=== PATIENT | female | born 1940 | race Asian ===

== ENCOUNTER 2021-09-25 11:51 | Inpatient (IN) | payer MEDICARE ==
[~2021-09-25 11:51] MED LIST: Iopamidol 370 76% 100 ML VIAL ONE
[2021-09-25 13:31] LABS: #Monocytes 0.9 10x3/uL (0.0-1.1); #Neutrophils 15.5 10x3/uL (1.5-8.4); %Basophils 0.1 % (0.0-2.0); %Lymphocytes 2.3 % (18.0-47.0); %Monocytes 5.3 % (0.0-10.0); %Neutrophils 91.6 % (40.0-75.0); Hemoglobin 13.6 g/dL (12.0-15.5); Mean Corpuscular HGB CONC 33.2 g/dL (32.0-36.0); Mean Corpuscular Hemoglobin 31.9 pg (27.0-33.0); Mean Corpuscular Volume 96.2 fl (81.6-98.3); Mean Platelet Volume 10.8 fl (7.4-10.4); Platelet Count 203 10x3/uL (150-450); RBC Distribution Width 14.9 % (11.5-14.5); Red Blood Cell (RBC) Count 4.26 10x6/uL (3.90-5.03)
[2021-09-25 13:47] LABS: ALT (SGPT) 60 U/L (8-55); AST (SGOT) 42 U/L (5-34); Albumin 4.3 g/dL (3.4-4.8); Alkaline Phosphatase 70 U/L (40-110); Anion Gap 20 mmol/L (10-20); BUN (Urea Nitrogen) 36 mg/dL (9.8-20.1); Bilirubin, Total 0.6 mg/dL (0.2-1.2); Calc. Creatinine Clearance 0 mL/min (70-130); Calcium 9.3 mg/dL (7.8-10.44); Carbon Dioxide 18 mmol/L (23-31); Chloride 111 mmol/L (98-107); Globulin 2.7 g/dL (2.4-3.5); Glucose 226 mg/dL (83-110); Potassium 4.6 mmol/L (3.5-5.1); Sodium 144 mmol/L (136-145)
[2021-09-25 13:52] LABS: SARS-CoV-2 NAA Rapid Test Not Detected (NotDetected)
[2021-09-25] MEDS ORDERED: cefTRIAXone\\ROCEPHIN 2 GM VIAL ONE (14:01)
[2021-09-25] MEDS ORDERED: Azithromycin 500 MG VIAL ONE (14:01)
[2021-09-25 14:05] LABS: CKMB 2.7 ng/mL (0-6.6)
[2021-09-25] MEDS ORDERED: Aspirin Chewable 81 MG TAB ONE (14:11)
[2021-09-25] MEDS ORDERED: Furosemide 40 MG/4 ML VIAL ONE (15:06)
[2021-09-25 15:23] LABS: Actual Bicarbonate (HCO3v) 18 mEq/L (22-28); Base Excess -6.2 mEq/L (-2.0 to +3.0); Calcium, Ionized (venous) 1.17 mmol/L (1.16-1.32); Chloride (VBG) 111 mmol/L (98-106); Critical Notified By: CP.PH; Hemoglobin (Hb) 14.2 g/dL (11.7-16.1); Potassium (VBG) 4.31 mmol/L (3.70-5.30); Puncture Site Other Site; Sodium 145.2 mmol/L (133-146); pH (venous) 7.36 (7.32-7.43)
[2021-09-25 15:54] LABS: Troponin I 0.109 ng/mL (< 0.028)
[2021-09-25 16:07] LABS: Lactic Acid 1.9 mmol/L (0.5-2.2)
[2021-09-25] MEDS ORDERED: Enoxaparin Sodium 60 MG/0.6 ML SYRINGE ONE (16:15)
[2021-09-25 16:25] LABS: INR-International Normal Ratio 1.1; PTT 21.1 sec (22.0-33.0); Prothrombin Time 11.6 sec (9.5-12.1)
[2021-09-25 16:33] VITALS: BMI 18.9
[2021-09-25 18:31] LABS: Troponin I 0.099 ng/mL (< 0.028)
[2021-09-26] MEDS: Enoxaparin Sodium 60 MG/0.6 ML SYRINGE SC SCH ×2 (03:16→16:49)
[2021-09-26 03:51] LABS: #Monocytes 0.7 10x3/uL (0.0-1.1); #Neutrophils 11.6 10x3/uL (1.5-8.4); %Basophils 0.1 % (0.0-2.0); %Eosinophils 0.1 % (0.0-6.0); %Neutrophils 88.3 % (40.0-75.0); Anion Gap 18 mmol/L (10-20); BUN (Urea Nitrogen) 28 mg/dL (9.8-20.1); Calc. Creatinine Clearance 43 mL/min (70-130); Calcium 8.4 mg/dL (7.8-10.44); Carbon Dioxide 21 mmol/L (23-31); Chloride 111 mmol/L (98-107); Glucose 162 mg/dL (83-110); Hemoglobin 13.3 g/dL (12.0-15.5); Mean Corpuscular HGB CONC 33.8 g/dL (32.0-36.0); Mean Corpuscular Hemoglobin 31.4 pg (27.0-33.0); Mean Corpuscular Volume 92.9 fl (81.6-98.3); Mean Platelet Volume 11.1 fl (7.4-10.4); Platelet Count 215 10x3/uL (150-450); RBC Distribution Width 15.2 % (11.5-14.5); Red Blood Cell (RBC) Count 4.24 10x6/uL (3.90-5.03); Sodium 146 mmol/L (136-145); White Blood Cell (WBC) Count 13.1 10x3/uL (3.5-10.5)
[2021-09-26] MEDS: Furosemide 40 MG/4 ML VIAL SLOW IVP SCH (07:56)
[2021-09-26] MEDS ORDERED: Famotidine 20 MG TAB PO SCH (09:00)
[2021-09-26] MEDS: cefTRIAXone\\ROCEPHIN 1 GM in Sodium Chloride 0.9% 100 ML IVPB SCH (15:15)
[2021-09-26] MEDS ORDERED: Dextrose 50% Abboject 50 ML SYRINGE SLOW IVP PRN (15:59)
[2021-09-26] MEDS ORDERED: Dextrose 5% in Water 1,000 ML IV PRN (15:59)
[2021-09-26] MEDS: HumaLOG 300 UNITS/3 ML VIAL SC PRN ×2 (16:49→21:18)
[2021-09-26] MEDS: Carvedilol 3.125 MG TAB PO SCH (16:50)
[2021-09-26 20:50] LABS: Anion Gap 18 mmol/L (10-20); BUN (Urea Nitrogen) 31 mg/dL (9.8-20.1); Calc. Creatinine Clearance 36 mL/min (70-130); Carbon Dioxide 23 mmol/L (23-31); Chloride 110 mmol/L (98-107); Glucose 271 mg/dL (83-110); Magnesium 2.6 mg/dL (1.6-2.6); Potassium 4.1 mmol/L (3.5-5.1); Sodium 147 mmol/L (136-145)
[2021-09-27] MEDS: Enoxaparin Sodium 60 MG/0.6 ML SYRINGE SC SCH (03:25)
[2021-09-27 03:48] LABS: #Monocytes 0.9 10x3/uL (0.0-1.1); #Neutrophils 14.3 10x3/uL (1.5-8.4); %Basophils 0.1 % (0.0-2.0); %Eosinophils 0.1 % (0.0-6.0); %Lymphocytes 5.9 % (18.0-47.0); %Monocytes 5.3 % (0.0-10.0); %Neutrophils 88.1 % (40.0-75.0); Hemoglobin 14.1 g/dL (12.0-15.5); Mean Corpuscular HGB CONC 33.3 g/dL (32.0-36.0); Mean Corpuscular Hemoglobin 31.1 pg (27.0-33.0); Mean Corpuscular Volume 93.4 fl (81.6-98.3); Mean Platelet Volume 10.2 fl (7.4-10.4); Platelet Count 197 10x3/uL (150-450); RBC Distribution Width 15.3 % (11.5-14.5); Red Blood Cell (RBC) Count 4.53 10x6/uL (3.90-5.03); White Blood Cell (WBC) Count 16.2 10x3/uL (3.5-10.5)
[2021-09-27 04:01] LABS: Anion Gap 19 mmol/L (10-20); BUN (Urea Nitrogen) 29 mg/dL (9.8-20.1); Calc. Creatinine Clearance 45 mL/min (70-130); Calcium 8.6 mg/dL (7.8-10.44); Carbon Dioxide 24 mmol/L (23-31); Cardiac Risk 4.3 (Less than 4.5); Chloride 111 mmol/L (98-107); Cholesterol 239 mg/dl (< 200 Desired); Glucose 136 mg/dL (83-110); HDL Cholesterol 55 mg/dL (>60 Neg Risk); LDL Cholesterol, Calculated 164 mg/dL; Potassium 3.7 mmol/L (3.5-5.1); Sodium 150 mmol/L (136-145); Triglycerides 100 mg/dL (Less than 150)
[2021-09-27 04:26] LABS: CKMB 1.5 ng/mL (0-6.6)
[2021-09-27] MEDS: Furosemide 40 MG/4 ML VIAL SLOW IVP SCH (09:16)
[2021-09-27] MEDS: Famotidine 20 MG TAB PO SCH (09:16)
[2021-09-27] MEDS: Carvedilol 3.125 MG TAB PO SCH ×2 (09:16→16:49)
[2021-09-27] MEDS: Lisinopril 2.5 MG TAB PO SCH (09:16)
[2021-09-27 09:57] LABS: Bilirubin Neg (Negative); Blood, Urine 150 (Negative); Clarity Clear (Clear); Glucose, Urine (Dipstick) Normal (Negative); Ketone, Urine 15 mg/dL (Negative); Leukocyte Negative (Negative); Nitrite Negative (Negative); Protein, Urine (Dipstick) 30 mg/dl (Neg-Trace); Urobilinogen Normal mg/dL (Less than 2)
[2021-09-27 10:13] LABS: Bacteria/HPF Rare-Few HPF (None Seen); Mucous/LPF 1+ LPF (<2+); RBC/HPF 0-3 HPF (0-3); Squamous Epithelial 0-3 HPF (0-3)
[2021-09-27] MEDS ORDERED: Spironolactone 25 MG TAB PO SCH (11:00)
[2021-09-27] MEDS: HumaLOG 300 UNITS/3 ML VIAL SC PRN ×2 (11:37→16:04)
[2021-09-27 12:06] LABS: Hemoglobin A1c 6.7 % (4.0-6.0)
[2021-09-27] MEDS: cefTRIAXone\\ROCEPHIN 1 GM in Sodium Chloride 0.9% 100 ML IVPB SCH (13:49)
[2021-09-27 18:43] LABS: Thyroid Stimulating Hormone 0.3055 uIU/mL (0.35-4.94)
[2021-09-27] MEDS ORDERED: Estrogens, Conjugated 30 GM TUBE VAG SCH (21:00)
[2021-09-27] MEDS: Apixaban 5 MG TAB PO SCH (21:54)
[2021-09-27] MEDS: Atorvastatin Calcium 10 MG TAB PO SCH (21:55)
[2021-09-28 03:19] LABS: #Eosinphils 0.1 10x3/uL (0.0-0.5); #Monocytes 0.8 10x3/uL (0.0-1.1); %Basophils 0.2 % (0.0-2.0); %Eosinophils 0.8 % (0.0-6.0); %Lymphocytes 8.7 % (18.0-47.0); %Monocytes 6.7 % (0.0-10.0); Hemoglobin 14.1 g/dL (12.0-15.5); Mean Corpuscular HGB CONC 33.2 g/dL (32.0-36.0); Mean Corpuscular Hemoglobin 31.7 pg (27.0-33.0); Mean Corpuscular Volume 95.5 fl (81.6-98.3); Mean Platelet Volume 10.6 fl (7.4-10.4); Platelet Count 199 10x3/uL (150-450); RBC Distribution Width 14.9 % (11.5-14.5); Red Blood Cell (RBC) Count 4.45 10x6/uL (3.90-5.03)
[2021-09-28 03:44] LABS: Anion Gap 17 mmol/L (10-20); BUN (Urea Nitrogen) 33 mg/dL (9.8-20.1); Calc. Creatinine Clearance 48 mL/min (70-130); Calcium 8.6 mg/dL (7.8-10.44); Carbon Dioxide 26 mmol/L (23-31); Chloride 108 mmol/L (98-107); Glucose 179 mg/dL (83-110); Potassium 3.5 mmol/L (3.5-5.1); Sodium 147 mmol/L (136-145)
[2021-09-28] MEDS: Spironolactone 25 MG TAB PO SCH (09:00)
[2021-09-28] MEDS: Famotidine 20 MG TAB PO SCH (09:00)
[2021-09-28] MEDS: Lisinopril 2.5 MG TAB PO SCH (09:00)
[2021-09-28] MEDS: Carvedilol 3.125 MG TAB PO SCH ×2 (09:01→17:44)
[2021-09-28] MEDS: Polyethylene Glycol 3350 17 GM Packet PO SCH (09:01)
[2021-09-28] MEDS: Apixaban 5 MG TAB PO SCH ×2 (09:01→21:36)
[2021-09-28] MEDS: HumaLOG 300 UNITS/3 ML VIAL SC PRN ×2 (09:40→18:05)
[2021-09-28 13:06] LABS: T4 9.8 ug/dL (4.87-11.72)
[2021-09-28] MEDS: cefTRIAXone\\ROCEPHIN 1 GM in Sodium Chloride 0.9% 100 ML IVPB SCH (13:46)
[2021-09-28] MEDS: Atorvastatin Calcium 10 MG TAB PO SCH (21:36)
[2021-09-28] MEDS: Estrogens, Conjugated 30 GM TUBE VAG SCH (21:55)
[2021-09-29 04:00] LABS: #Eosinphils 0.2 10x3/uL (0.0-0.5); #Monocytes 0.7 10x3/uL (0.0-1.1); #Neutrophils 9.1 10x3/uL (1.5-8.4); %Basophils 0.3 % (0.0-2.0); %Eosinophils 2.1 % (0.0-6.0); %Lymphocytes 9.3 % (18.0-47.0); %Monocytes 6.4 % (0.0-10.0); %Neutrophils 81.4 % (40.0-75.0); Hemoglobin 13.8 g/dL (12.0-15.5); Mean Corpuscular HGB CONC 32.6 g/dL (32.0-36.0); Mean Corpuscular Hemoglobin 31.8 pg (27.0-33.0); Mean Corpuscular Volume 97.5 fl (81.6-98.3); Mean Platelet Volume 10.9 fl (7.4-10.4); Platelet Count 205 10x3/uL (150-450); RBC Distribution Width 14.8 % (11.5-14.5); Red Blood Cell (RBC) Count 4.34 10x6/uL (3.90-5.03); White Blood Cell (WBC) Count 11.2 10x3/uL (3.5-10.5)
[2021-09-29 04:25] LABS: Anion Gap 16 mmol/L (10-20); BUN (Urea Nitrogen) 29 mg/dL (9.8-20.1); Calc. Creatinine Clearance 52 mL/min (70-130); Calcium 8.5 mg/dL (7.8-10.44); Carbon Dioxide 25 mmol/L (23-31); Chloride 110 mmol/L (98-107); Glucose 164 mg/dL (83-110); Potassium 3.8 mmol/L (3.5-5.1); Sodium 147 mmol/L (136-145)
[2021-09-29] MEDS ORDERED: Lactated Ringer's 1,000 ML IV SCH (08:45)
[2021-09-29] MEDS: Carvedilol 3.125 MG TAB PO SCH ×2 (09:36→20:13)
[2021-09-29] MEDS: Apixaban 5 MG TAB PO SCH ×2 (09:36→20:14)
[2021-09-29] MEDS: Famotidine 20 MG TAB PO SCH (09:36)
[2021-09-29] MEDS: Lisinopril 2.5 MG TAB PO SCH (09:37)
[2021-09-29] MEDS: Spironolactone 25 MG TAB PO SCH (09:37)
[2021-09-29] MEDS: Polyethylene Glycol 3350 17 GM Packet PO SCH (09:37)
[2021-09-29] MEDS: HumaLOG 300 UNITS/3 ML VIAL SC PRN ×2 (11:54→20:27)
[2021-09-29] MEDS: cefTRIAXone\\ROCEPHIN 1 GM in Sodium Chloride 0.9% 100 ML IVPB SCH (15:03)
[2021-09-29] MEDS: Atorvastatin Calcium 10 MG TAB PO SCH (20:13)
[2021-09-29] MEDS: Estrogens, Conjugated 30 GM TUBE VAG SCH (23:00)
[2021-09-30 04:38] LABS: #Eosinphils 0.4 10x3/uL (0.0-0.5); #Monocytes 0.6 10x3/uL (0.0-1.1); #Neutrophils 7.1 10x3/uL (1.5-8.4); %Basophils 0.3 % (0.0-2.0); %Eosinophils 3.7 % (0.0-6.0); %Lymphocytes 12.9 % (18.0-47.0); %Monocytes 6.5 % (0.0-10.0); %Neutrophils 75.9 % (40.0-75.0); Hemoglobin 13.2 g/dL (12.0-15.5); Mean Corpuscular HGB CONC 32.5 g/dL (32.0-36.0); Mean Corpuscular Hemoglobin 31.5 pg (27.0-33.0); Mean Corpuscular Volume 96.9 fl (81.6-98.3); Mean Platelet Volume 10.9 fl (7.4-10.4); Platelet Count 194 10x3/uL (150-450); RBC Distribution Width 14.6 % (11.5-14.5); Red Blood Cell (RBC) Count 4.19 10x6/uL (3.90-5.03); White Blood Cell (WBC) Count 9.4 10x3/uL (3.5-10.5)
[2021-09-30 04:49] LABS: Anion Gap 15 mmol/L (10-20); BUN (Urea Nitrogen) 25 mg/dL (9.8-20.1); Calc. Creatinine Clearance 54 mL/min (70-130); Calcium 8.3 mg/dL (7.8-10.44); Carbon Dioxide 24 mmol/L (23-31); Chloride 112 mmol/L (98-107); Glucose 131 mg/dL (83-110); Potassium 3.8 mmol/L (3.5-5.1); Sodium 147 mmol/L (136-145)
[2021-09-30] MEDS: Carvedilol 3.125 MG TAB PO SCH ×2 (09:47→17:07)
[2021-09-30] MEDS: Famotidine 20 MG TAB PO SCH (09:47)
[2021-09-30] MEDS: Spironolactone 25 MG TAB PO SCH (09:47)
[2021-09-30] MEDS: Apixaban 5 MG TAB PO SCH ×2 (09:47→20:14)
[2021-09-30] MEDS: Lisinopril 2.5 MG TAB PO SCH (09:48)
[2021-09-30] MEDS: Polyethylene Glycol 3350 17 GM Packet PO SCH (09:48)
[2021-09-30] MEDS: cefTRIAXone\\ROCEPHIN 1 GM in Sodium Chloride 0.9% 100 ML IVPB SCH (17:05)
[2021-09-30] MEDS: Atorvastatin Calcium 10 MG TAB PO SCH (20:14)
[2021-09-30] MEDS: HumaLOG 300 UNITS/3 ML VIAL SC PRN (20:39)
[2021-09-30] MEDS: Estrogens, Conjugated 30 GM TUBE VAG SCH (21:35)
[2021-10-01 08:46] LABS: Anion Gap 15 mmol/L (10-20); BUN (Urea Nitrogen) 19 mg/dL (9.8-20.1); Calc. Creatinine Clearance 56 mL/min (70-130); Calcium 8.2 mg/dL (7.8-10.44); Carbon Dioxide 22 mmol/L (23-31); Chloride 111 mmol/L (98-107); Glucose 134 mg/dL (83-110); Potassium 4.1 mmol/L (3.5-5.1); Sodium 144 mmol/L (136-145)
[2021-10-01] MEDS ORDERED: Carvedilol 3.125 MG TAB ONE (09:01)
[2021-10-01] MEDS: Spironolactone 25 MG TAB PO SCH (09:05)
[2021-10-01] MEDS: Apixaban 5 MG TAB PO SCH (09:05)
[2021-10-01] MEDS: Famotidine 20 MG TAB PO SCH (09:05)
[2021-10-01] MEDS: Carvedilol 3.125 MG TAB PO SCH (09:06)
[2021-10-01] MEDS: Lisinopril 2.5 MG TAB PO SCH (09:06)
[2021-10-01] MEDS: Polyethylene Glycol 3350 17 GM Packet PO SCH (09:07)
[2021-10-01 16:13] VITALS: BP 124/77; TEMP 96.4
[2021-10-02] MEDS ORDERED: Apixaban 5 MG TAB PO SCH (21:00)
== END 2021-10-01 16:30 | disposition home health service (06) | DRG 175 ==
LOC: CSHERS 11:51 → CSHIMCU 16:01 → CSHTELE 09-28 13:00
PROVIDERS: ADMIT Internal Medicine; ATTEND Family Medicine
PROC: 5A0935A Assistance with Respiratory Ventilation, Less than 24 Consecutive Hours, High Flow/Velocity Cannula (ICD-10-PCS; principal; 2021-09-25)
DX: I26.99 Other pulmonary embolism without acute cor pulmonale (principal); J18.9 Pneumonia, unspecified organism; J96.01 Acute respiratory failure with hypoxia; I50.21 Acute systolic (congestive) heart failure; I42.9 Cardiomyopathy, unspecified; M48.54XA Collapsed vertebra, not elsewhere classified, thoracic region, initial encounter for fracture; J98.11 Atelectasis; E87.2 Acidosis; E78.5 Hyperlipidemia, unspecified; R33.9 Retention of urine, unspecified; R73.9 Hyperglycemia, unspecified; I11.0 Hypertensive heart disease with heart failure; I34.0 Nonrheumatic mitral (valve) insufficiency; M81.0 Age-related osteoporosis without current pathological fracture; R13.10 Dysphagia, unspecified; Z20.822 Contact with and (suspected) exposure to COVID-19
CPT/HCPCS: 36415; 36416; 71045; 71275; 74230; 80048; 80053; 80061; 81001; 82553; 82805; 83036; 83605; 83735; 83880; 84300; 84436; 84443; 84484; 85025; 85610; 85730; 87040; 93005; 93010; 93306; 93970; 94640; 94760; 96365; 96372; 96375; J0456; J0696; J1650; J1815; J1940; J3490; J7120; Q9967

== ENCOUNTER 2021-11-06 09:11 | Outpatient (CLI) | payer OTHER | END 2021-11-06 09:12 | disposition home or self-care (01) | LOC: CSHRAD 09:11 | PROVIDERS: ATTEND Surgery | DX: S22.081D Stable burst fracture of T11-T12 vertebra, subsequent encounter for fracture with routine healing (principal) | CPT/HCPCS: 72070 ==

== ENCOUNTER 2021-12-17 14:32 | Outpatient (CLI) | payer OTHER | END 2021-12-17 14:33 | disposition home or self-care (01) | LOC: CSHRAD 14:32 | PROVIDERS: ATTEND Surgery | DX: S22.081D Stable burst fracture of T11-T12 vertebra, subsequent encounter for fracture with routine healing (principal) | CPT/HCPCS: 72070 ==

== ENCOUNTER 2022-09-13 15:55 | Inpatient (IN) | payer MEDICARE, OTHER ==
[~2022-09-13 15:55] MED LIST changes: +Iopamidol 300 61% 100 ML VIAL FS ONE; -Iopamidol 370 76% 100 ML VIAL ONE
[2022-09-13] MEDS ORDERED: cefTRIAXone (ROCEPHIN) 1 GM VIAL ONE (16:50)
[2022-09-13] MEDS ORDERED: Azithromycin 500 MG VIAL ONE (16:50)
[2022-09-13] MEDS ORDERED: Aspirin Chewable 81 MG TAB ONE (16:50)
[2022-09-13] MEDS ORDERED: Furosemide 40 MG/4 ML VIAL ONE ×2 (16:50→23:54)
[2022-09-13 16:56] LABS: #Eosinphils 0.1 10x3/uL (0.0-0.5); #Monocytes 0.9 10x3/uL (0.0-1.1); %Basophils 0.2 % (0.0-2.0); %Eosinophils 0.6 % (0.0-6.0); %Lymphocytes 4.9 % (18.0-47.0); %Monocytes 7.3 % (0.0-10.0); %Neutrophils 86.4 % (40.0-75.0); Hemoglobin 13.5 g/dL (12.0-15.5); Mean Corpuscular HGB CONC 32.5 g/dL (32.0-36.0); Mean Corpuscular Hemoglobin 32.5 pg (27.0-33.0); Mean Corpuscular Volume 100.2 fl (81.6-98.3); Mean Platelet Volume 10.8 fl (7.4-10.4); Platelet Count 188 10x3/uL (150-450); RBC Distribution Width 15.8 % (11.5-14.5); Red Blood Cell (RBC) Count 4.15 10x6/uL (3.90-5.03); White Blood Cell (WBC) Count 11.6 10x3/uL (3.5-10.5)
[2022-09-13 17:12] LABS: ALT (SGPT) 33 U/L (8-55); AST (SGOT) 21 U/L (5-34); Albumin 3.3 g/dL (3.4-4.8); Alkaline Phosphatase 77 U/L (40-110); Anion Gap 12 mmol/L (10-20); BUN (Urea Nitrogen) 33 mg/dL (9.8-20.1); Bilirubin, Total 0.4 mg/dL (0.2-1.2); CK (CPK) 90 U/L (29-168); Calc. Creatinine Clearance 0 mL/min (70-130); Calcium 8.5 mg/dL (7.8-10.44); Carbon Dioxide 22 mmol/L (23-31); Chloride 111 mmol/L (98-107); Estimated GFR 54; Glucose 347 mg/dL (83-110); Lipase 57 U/L (8-78); Potassium 4.3 mmol/L (3.5-5.1); Protein, Total 5.3 g/dL (5.8-8.1); Sodium 141 mmol/L (136-145)
[2022-09-13 17:26] LABS: Bilirubin Neg (Negative); Blood, Urine 25 (Negative); Clarity Clear (Clear); Glucose, Urine (Dipstick) >=1000 mg/dL (Negative); Ketone, Urine Negative (Negative); Leukocyte Negative (Negative); Nitrite Negative (Negative); Protein, Urine (Dipstick) 100 mg/dl (Neg-Trace); Specific Gravity, Urine 1.025 (1.005-1.030); Urobilinogen Normal mg/dL (Less than 2)
[2022-09-13 17:30] LABS: CKMB 1.7 ng/mL (0-6.6)
[2022-09-13 17:36] LABS: CAUTI Indications for Culture Alt mental st,lethar; RBC/HPF 0-3 HPF (0-3); Squamous Epithelial 0-3 HPF (0-3); WBC/HPF 0-3 HPF (0-3)
[2022-09-13 17:37] LABS: Bacteria/HPF Rare-Few HPF (None Seen); Mucous/LPF Rare LPF (<2+); Urine Culture Reflex No No
[2022-09-13] MEDS ORDERED: Dextrose 50% Abboject 50 ML SYRINGE SLOW IVP PRN (20:50)
[2022-09-13] MEDS ORDERED: Glucagon 1 MG/ML KIT IM PRN (20:50)
[2022-09-13] MEDS ORDERED: Dextrose 5% in Water 1,000 ML IV PRN (20:50)
[2022-09-13 21:07] LABS: Lactic Acid 2.2 mmol/L (0.5-2.2)
[2022-09-13 21:11] LABS: Magnesium 2.2 mg/dL (1.6-2.6)
[2022-09-13 21:16] LABS: Troponin I 0.051 ng/mL (< 0.028)
[2022-09-13] MEDS ORDERED: Potassium Chloride 20 MEQ in Premix Bag 1 BAG IVPB SCH (21:30)
[2022-09-13] MEDS ORDERED: Potassium Chloride 20 MEQ/100 ML PREMIX BAG ONE (21:57)
[2022-09-13] MEDS: HumaLOG 300 UNITS/3 ML VIAL SC PRN (22:34)
[2022-09-13 23:49] LABS: Troponin I 0.052 ng/mL (< 0.028)
[2022-09-13] MEDS ORDERED: Furosemide 40 MG/4 ML VIAL SLOW IVP SCH (23:59)
[2022-09-14] MEDS ORDERED: Aspirin Chewable 81 MG TAB ONE (04:00)
[2022-09-14] MEDS ORDERED: Furosemide 40 MG/4 ML VIAL ONE (04:00)
[2022-09-14 05:28] LABS: Anion Gap 16 mmol/L (10-20); BUN (Urea Nitrogen) 26 mg/dL (9.8-20.1); Calc. Creatinine Clearance 57 mL/min (70-130); Calcium 8.7 mg/dL (7.8-10.44); Carbon Dioxide 26 mmol/L (23-31); Chloride 106 mmol/L (98-107); Estimated GFR 71; Glucose 168 mg/dL (83-110); Potassium 3.9 mmol/L (3.5-5.1); Sodium 144 mmol/L (136-145)
[2022-09-14] MEDS: Furosemide 40 MG/4 ML VIAL SLOW IVP SCH ×2 (05:37→15:16)
[2022-09-14 05:38] LABS: #Eosinphils 0.1 10x3/uL (0.0-0.5); #Neutrophils 9.1 10x3/uL (1.5-8.4); %Basophils 0.3 % (0.0-2.0); %Eosinophils 1.1 % (0.0-6.0); %Lymphocytes 9.6 % (18.0-47.0); %Monocytes 8.8 % (0.0-10.0); %Neutrophils 79.8 % (40.0-75.0); Mean Corpuscular HGB CONC 33.1 g/dL (32.0-36.0); Mean Corpuscular Hemoglobin 32.5 pg (27.0-33.0); Mean Corpuscular Volume 98.1 fl (81.6-98.3); Mean Platelet Volume 10.7 fl (7.4-10.4); Platelet Count 201 10x3/uL (150-450); RBC Distribution Width 15.8 % (11.5-14.5); Red Blood Cell (RBC) Count 4.62 10x6/uL (3.90-5.03); White Blood Cell (WBC) Count 11.4 10x3/uL (3.5-10.5)
[2022-09-14] MEDS: HumaLOG 300 UNITS/3 ML VIAL SC PRN ×3 (06:05→17:21)
[2022-09-14] MEDS: Potassium Chloride 10 MEQ in Premix Bag 1 BAG IVPB SCH ×2 (06:05→10:21)
[2022-09-14] MEDS ORDERED: Aspirin 81 mg Enteric Coated Tablet PO SCH (09:00)
[2022-09-14 13:54] LABS: Uric Acid 6.5 mg/dL (2.6-6.0)
[2022-09-14] MEDS: Carbidopa/Levodopa 25-100 mg Tablet PO SCH ×2 (15:50→21:04)
[2022-09-14] MEDS: Carvedilol 3.125 MG TAB PO SCH (17:20)
[2022-09-14] MEDS: Donepezil HCl 5 MG TAB PO SCH (21:04)
[2022-09-15 05:29] LABS: Anion Gap 16 mmol/L (10-20); BUN (Urea Nitrogen) 39 mg/dL (9.8-20.1); Calc. Creatinine Clearance 33 mL/min (70-130); Carbon Dioxide 25 mmol/L (23-31); Chloride 107 mmol/L (98-107); Sodium 144 mmol/L (136-145)
[2022-09-15 05:30] LABS: Calcium 8.8 mg/dL (7.8-10.44); Estimated GFR 56; Glucose 212 mg/dL (83-110)
[2022-09-15 05:38] LABS: #Eosinphils 0.1 10x3/uL (0.0-0.5); #Monocytes 0.9 10x3/uL (0.0-1.1); #Neutrophils 10.9 10x3/uL (1.5-8.4); %Basophils 0.2 % (0.0-2.0); %Eosinophils 0.7 % (0.0-6.0); %Lymphocytes 6.8 % (18.0-47.0); %Monocytes 7.1 % (0.0-10.0); %Neutrophils 84.6 % (40.0-75.0); Hemoglobin 14.8 g/dL (12.0-15.5); Mean Corpuscular HGB CONC 33.5 g/dL (32.0-36.0); Mean Corpuscular Hemoglobin 32.7 pg (27.0-33.0); Mean Corpuscular Volume 97.8 fl (81.6-98.3); Mean Platelet Volume 10.7 fl (7.4-10.4); Platelet Count 210 10x3/uL (150-450); RBC Distribution Width 15.9 % (11.5-14.5); Red Blood Cell (RBC) Count 4.52 10x6/uL (3.90-5.03); White Blood Cell (WBC) Count 12.9 10x3/uL (3.5-10.5)
[2022-09-15] MEDS: Furosemide 40 MG/4 ML VIAL SLOW IVP SCH ×2 (06:29→16:45)
[2022-09-15] MEDS: HumaLOG 300 UNITS/3 ML VIAL SC PRN ×4 (06:30→21:01)
[2022-09-15] MEDS: Carbidopa/Levodopa 25-100 mg Tablet PO SCH ×3 (09:36→20:56)
[2022-09-15] MEDS: Lisinopril 2.5 MG TAB PO SCH (09:36)
[2022-09-15] MEDS: Carvedilol 3.125 MG TAB PO SCH ×2 (09:36→16:45)
[2022-09-15] MEDS: Aspirin Chewable 81 MG TAB PO SCH (09:37)
[2022-09-15] MEDS: Spironolactone 25 MG TAB PO SCH (09:37)
[2022-09-15] MEDS: Donepezil HCl 5 MG TAB PO SCH (20:56)
[2022-09-16 04:12] LABS: Anion Gap 13 mmol/L (10-20); BUN (Urea Nitrogen) 56 mg/dL (9.8-20.1); Calc. Creatinine Clearance 21 mL/min (70-130); Calcium 9.1 mg/dL (7.8-10.44); Carbon Dioxide 29 mmol/L (23-31); Chloride 108 mmol/L (98-107); Estimated GFR 32; Glucose 129 mg/dL (83-110); Sodium 146 mmol/L (136-145)
[2022-09-16 04:22] LABS: #Eosinphils 0.3 10x3/uL (0.0-0.5); #Monocytes 1.1 10x3/uL (0.0-1.1); #Neutrophils 10.8 10x3/uL (1.5-8.4); %Basophils 0.2 % (0.0-2.0); %Eosinophils 2.3 % (0.0-6.0); %Lymphocytes 5.9 % (18.0-47.0); %Monocytes 8.5 % (0.0-10.0); %Neutrophils 82.6 % (40.0-75.0); Hemoglobin 13.5 g/dL (12.0-15.5); Mean Corpuscular HGB CONC 32.8 g/dL (32.0-36.0); Mean Corpuscular Hemoglobin 32.4 pg (27.0-33.0); Mean Corpuscular Volume 98.6 fl (81.6-98.3); Platelet Count 206 10x3/uL (150-450); Red Blood Cell (RBC) Count 4.17 10x6/uL (3.90-5.03); White Blood Cell (WBC) Count 13.1 10x3/uL (3.5-10.5)
[2022-09-16] MEDS: Furosemide 40 MG/4 ML VIAL SLOW IVP SCH ×2 (05:49→13:55)
[2022-09-16] MEDS ORDERED: Sodium Chloride 0.9% 500 ML IV SCH (06:30)
[2022-09-16] MEDS ORDERED: Adenosine 6 MG/2 ML VIAL ONE (06:35)
[2022-09-16 07:16] LABS: #Eosinphils 0.3 10x3/uL (0.0-0.5); #Monocytes 0.9 10x3/uL (0.0-1.1); #Neutrophils 10.8 10x3/uL (1.5-8.4); %Basophils 0.2 % (0.0-2.0); %Eosinophils 2.3 % (0.0-6.0); %Lymphocytes 6.4 % (18.0-47.0); %Neutrophils 83.6 % (40.0-75.0); Hemoglobin 14.1 g/dL (12.0-15.5); Mean Corpuscular HGB CONC 33.2 g/dL (32.0-36.0); Mean Corpuscular Hemoglobin 32.9 pg (27.0-33.0); Mean Corpuscular Volume 99.1 fl (81.6-98.3); Mean Platelet Volume 10.6 fl (7.4-10.4); Platelet Count 198 10x3/uL (150-450); RBC Distribution Width 15.9 % (11.5-14.5); Red Blood Cell (RBC) Count 4.29 10x6/uL (3.90-5.03); White Blood Cell (WBC) Count 12.9 10x3/uL (3.5-10.5)
[2022-09-16 07:20] LABS: Anion Gap 17 mmol/L (10-20); BUN (Urea Nitrogen) 53 mg/dL (9.8-20.1); Calc. Creatinine Clearance 23 mL/min (70-130); Calcium 8.8 mg/dL (7.8-10.44); Carbon Dioxide 26 mmol/L (23-31); Chloride 108 mmol/L (98-107); Estimated GFR 37; Glucose 162 mg/dL (83-110); Magnesium 2.4 mg/dL (1.6-2.6); Potassium 3.7 mmol/L (3.5-5.1); Sodium 147 mmol/L (136-145)
[2022-09-16 07:29] LABS: Troponin I 0.042 ng/mL (< 0.028)
[2022-09-16 07:33] LABS: Actual Bicarbonate (HCO3v) 28.2 mEq/L (22-28); Base Excess 4.5 mEq/L (-2 - +2); Calcium, Ionized (venous) 1.08 mmol/L (1.16-1.32); Chloride (VBG) 117 mmol/L (98-106); Hematocrit-VBG 43 % (36.0-47.0); Hemoglobin (Hb) 14.5 g/dL (11.7-16.1); Potassium (VBG) 3.88 mmol/L (3.70-5.30); Puncture Site Other Site; RapidComm Collect By LAB; Sodium 163.8 mmol/L (133-146); pH (venous) 7.477 (7.32-7.43)
[2022-09-16] MEDS ORDERED: Digoxin 0.5 MG/2 ML AMP ONE (07:40)
[2022-09-16] MEDS ORDERED: Digoxin 0.5 MG/2 ML AMP SLOW IVP SCH (07:45)
[2022-09-16] MEDS ORDERED: Dextrose 5% in Water 1,000 ML IV SCH (08:00)
[2022-09-16] MEDS ORDERED: Diltiazem 125 MG in Sodium Chloride 0.9% 100 ML IVPB SCH (08:00)
[2022-09-16 08:44] LABS: ALT (SGPT) 10 U/L (8-55); AST (SGOT) 21 U/L (5-34); Albumin 3.1 g/dL (3.4-4.8); Alkaline Phosphatase 77 U/L (40-110); Anion Gap 18 mmol/L (10-20); BUN (Urea Nitrogen) 52 mg/dL (9.8-20.1); Bilirubin, Total 0.7 mg/dL (0.2-1.2); Calc. Creatinine Clearance 23 mL/min (70-130); Calcium 9.1 mg/dL (7.8-10.44); Carbon Dioxide 26 mmol/L (23-31); Chloride 107 mmol/L (98-107); Estimated GFR 36; Globulin 2.7 g/dL (2.4-3.5); Glucose 180 mg/dL (83-110); Protein, Total 5.8 g/dL (5.8-8.1); Sodium 147 mmol/L (136-145)
[2022-09-16] MEDS: Carbidopa/Levodopa 25-100 mg Tablet PO SCH ×3 (09:30→22:06)
[2022-09-16] MEDS: Carvedilol 3.125 MG TAB PO SCH ×2 (09:34→16:38)
[2022-09-16] MEDS: Aspirin Chewable 81 MG TAB PO SCH (09:34)
[2022-09-16] MEDS: Lisinopril 2.5 MG TAB PO SCH (09:35)
[2022-09-16] MEDS: Spironolactone 25 MG TAB PO SCH (09:36)
[2022-09-16 11:40] LABS: Troponin I 0.076 ng/mL (< 0.028)
[2022-09-16] MEDS: HumaLOG 300 UNITS/3 ML VIAL SC PRN ×2 (11:58→15:53)
[2022-09-16] MEDS: Donepezil HCl 5 MG TAB PO SCH (22:06)
[2022-09-17 03:10] LABS: #Eosinphils 0.2 10x3/uL (0.0-0.5); #Monocytes 1.2 10x3/uL (0.0-1.1); %Basophils 0.2 % (0.0-2.0); %Eosinophils 1.1 % (0.0-6.0); %Lymphocytes 4.1 % (18.0-47.0); %Monocytes 7.8 % (0.0-10.0); %Neutrophils 86.3 % (40.0-75.0); Hemoglobin 14.2 g/dL (12.0-15.5); Mean Corpuscular HGB CONC 32.9 g/dL (32.0-36.0); Mean Corpuscular Hemoglobin 32.9 pg (27.0-33.0); Mean Corpuscular Volume 99.8 fl (81.6-98.3); Mean Platelet Volume 10.7 fl (7.4-10.4); Platelet Count 215 10x3/uL (150-450); RBC Distribution Width 15.6 % (11.5-14.5); Red Blood Cell (RBC) Count 4.32 10x6/uL (3.90-5.03)
[2022-09-17 03:17] LABS: Anion Gap 14 mmol/L (10-20); BUN (Urea Nitrogen) 59 mg/dL (9.8-20.1); Calc. Creatinine Clearance 24 mL/min (70-130); Calcium 9.4 mg/dL (7.8-10.44); Carbon Dioxide 29 mmol/L (23-31); Chloride 107 mmol/L (98-107); Estimated GFR 38; Glucose 223 mg/dL (83-110); Potassium 4.3 mmol/L (3.5-5.1); Sodium 146 mmol/L (136-145)
[2022-09-17] MEDS: HumaLOG 300 UNITS/3 ML VIAL SC PRN ×3 (06:09→22:32)
[2022-09-17] MEDS: Furosemide 40 MG/4 ML VIAL SLOW IVP SCH ×2 (06:11→08:46)
[2022-09-17 06:23] VITALS: BMI 20.2
[2022-09-17] MEDS ORDERED: Polyethylene Glycol 3350 17 GM Packet PO PRN (07:48)
[2022-09-17] MEDS: Digoxin 0.125 MG TAB PO SCH (08:45)
[2022-09-17] MEDS: Spironolactone 25 MG TAB PO SCH (08:45)
[2022-09-17] MEDS: Aspirin Chewable 81 MG TAB PO SCH (08:46)
[2022-09-17] MEDS: Carvedilol 3.125 MG TAB PO SCH (08:46)
[2022-09-17] MEDS: Lisinopril 2.5 MG TAB PO SCH (08:46)
[2022-09-17] MEDS: Ampicillin/Sulbactam 3 GM in Sodium Chloride 0.9% 100 ML IVPB SCH ×2 (08:46→22:32)
[2022-09-17] MEDS: Carbidopa/Levodopa 25-100 mg Tablet PO SCH ×3 (08:49→23:01)
[2022-09-17] MEDS: Carvedilol 6.25 MG TAB PO SCH (16:42)
[2022-09-17] MEDS ORDERED: Sodium Chloride 0.9% 100 ML ONE (22:01)
[2022-09-17] MEDS: Donepezil HCl 5 MG TAB PO SCH (22:32)
[2022-09-18 04:12] LABS: #Eosinphils 0.2 10x3/uL (0.0-0.5); #Monocytes 1.4 10x3/uL (0.0-1.1); #Neutrophils 15.2 10x3/uL (1.5-8.4); %Basophils 0.2 % (0.0-2.0); %Eosinophils 0.9 % (0.0-6.0); %Lymphocytes 4.3 % (18.0-47.0); %Neutrophils 85.8 % (40.0-75.0); Hemoglobin 14.5 g/dL (12.0-15.5); Mean Corpuscular HGB CONC 32.6 g/dL (32.0-36.0); Mean Corpuscular Hemoglobin 32.3 pg (27.0-33.0); Mean Corpuscular Volume 99.1 fl (81.6-98.3); Mean Platelet Volume 11.1 fl (7.4-10.4); Platelet Count 259 10x3/uL (150-450); RBC Distribution Width 15.5 % (11.5-14.5); Red Blood Cell (RBC) Count 4.49 10x6/uL (3.90-5.03); White Blood Cell (WBC) Count 17.7 10x3/uL (3.5-10.5)
[2022-09-18 04:23] LABS: Anion Gap 17 mmol/L (10-20); BUN (Urea Nitrogen) 76 mg/dL (9.8-20.1); Calc. Creatinine Clearance 20 mL/min (70-130); Calcium 10.2 mg/dL (7.8-10.44); Carbon Dioxide 28 mmol/L (23-31); Chloride 108 mmol/L (98-107); Estimated GFR 29; Glucose 145 mg/dL (83-110); Potassium 4.1 mmol/L (3.5-5.1); Sodium 149 mmol/L (136-145)
[2022-09-18 08:59] LABS: Bilirubin Neg (Negative); Blood, Urine 250 (Negative); Clarity Cloudy (Clear); Glucose, Urine (Dipstick) 50 mg/dL (Negative); Ketone, Urine Negative (Negative); Leukocyte 100 (Negative); Nitrite Negative (Negative); Protein, Urine (Dipstick) 30 mg/dl (Neg-Trace); Urobilinogen Normal mg/dL (Less than 2)
[2022-09-18 09:24] LABS: Bacteria/HPF 2+ HPF (None Seen); RBC/HPF Greater than 50 HPF (0-3); Squamous Epithelial 0-3 HPF (0-3)
[2022-09-18] MEDS: Ampicillin/Sulbactam 3 GM in Sodium Chloride 0.9% 100 ML IVPB SCH ×2 (10:14→21:00)
[2022-09-18] MEDS: Carbidopa/Levodopa 25-100 mg Tablet PO SCH ×3 (11:10→21:33)
[2022-09-18] MEDS: Carvedilol 6.25 MG TAB PO SCH ×2 (11:10→16:42)
[2022-09-18] MEDS: Aspirin Chewable 81 MG TAB PO SCH (11:11)
[2022-09-18] MEDS: Digoxin 0.125 MG TAB PO SCH (11:11)
[2022-09-18] MEDS: HumaLOG 300 UNITS/3 ML VIAL SC PRN ×2 (11:21→16:50)
[2022-09-18] MEDS: Lisinopril 2.5 MG TAB PO SCH (11:35)
[2022-09-18] MEDS: Spironolactone 25 MG TAB PO SCH (11:35)
[2022-09-18] MEDS: Furosemide 40 MG/4 ML VIAL SLOW IVP SCH (11:35)
[2022-09-18] MEDS: Donepezil HCl 5 MG TAB PO SCH (21:33)
[2022-09-19 03:32] LABS: #Eosinphils 0.2 10x3/uL (0.0-0.5); #Monocytes 0.7 10x3/uL (0.0-1.1); #Neutrophils 9.2 10x3/uL (1.5-8.4); %Basophils 0.2 % (0.0-2.0); %Eosinophils 1.5 % (0.0-6.0); %Lymphocytes 7.8 % (18.0-47.0); %Monocytes 6.3 % (0.0-10.0); %Neutrophils 83.3 % (40.0-75.0); Hemoglobin 12.4 g/dL (12.0-15.5); Mean Corpuscular HGB CONC 31.6 g/dL (32.0-36.0); Mean Corpuscular Volume 101.6 fl (81.6-98.3); Mean Platelet Volume 11.2 fl (7.4-10.4); Platelet Count 239 10x3/uL (150-450); RBC Distribution Width 15.8 % (11.5-14.5); Red Blood Cell (RBC) Count 3.87 10x6/uL (3.90-5.03)
[2022-09-19 03:47] LABS: Anion Gap 13 mmol/L (10-20); BUN (Urea Nitrogen) 62 mg/dL (9.8-20.1); Calc. Creatinine Clearance 24 mL/min (70-130); Calcium 9.5 mg/dL (7.8-10.44); Carbon Dioxide 31 mmol/L (23-31); Chloride 116 mmol/L (98-107); Estimated GFR 48; Glucose 218 mg/dL (83-110); Potassium 3.7 mmol/L (3.5-5.1)
[2022-09-19 03:51] LABS: Sodium 156 mmol/L (136-145)
[2022-09-19] MEDS ORDERED: Dextrose 5% in Water 1,000 ML IV SCH (04:30)
[2022-09-19] MEDS: HumaLOG 300 UNITS/3 ML VIAL SC PRN ×4 (06:19→21:43)
[2022-09-19] MEDS: Carvedilol 6.25 MG TAB PO SCH ×2 (08:51→16:57)
[2022-09-19] MEDS: Aspirin Chewable 81 MG TAB PO SCH (08:51)
[2022-09-19] MEDS: Carbidopa/Levodopa 25-100 mg Tablet PO SCH ×3 (08:51→21:44)
[2022-09-19] MEDS: Digoxin 0.125 MG TAB PO SCH (08:51)
[2022-09-19] MEDS: Ampicillin/Sulbactam 3 GM in Sodium Chloride 0.9% 100 ML IVPB SCH ×2 (08:51→21:39)
[2022-09-19] MEDS: Dextrose 5% in Water 1,000 ML IV SCH (09:55)
[2022-09-19] MEDS: Donepezil HCl 5 MG TAB PO SCH (21:44)
[2022-09-20 04:12] LABS: #Eosinphils 0.4 10x3/uL (0.0-0.5); #Monocytes 0.5 10x3/uL (0.0-1.1); #Neutrophils 6.5 10x3/uL (1.5-8.4); %Basophils 0.4 % (0.0-2.0); %Eosinophils 4.3 % (0.0-6.0); %Lymphocytes 11.8 % (18.0-47.0); %Monocytes 6.3 % (0.0-10.0); %Neutrophils 76.5 % (40.0-75.0); Hemoglobin 12.3 g/dL (12.0-15.5); Mean Corpuscular HGB CONC 31.1 g/dL (32.0-36.0); Mean Corpuscular Hemoglobin 32.2 pg (27.0-33.0); Mean Corpuscular Volume 103.4 fl (81.6-98.3); Mean Platelet Volume 10.8 fl (7.4-10.4); Platelet Count 242 10x3/uL (150-450); RBC Distribution Width 15.4 % (11.5-14.5); Red Blood Cell (RBC) Count 3.82 10x6/uL (3.90-5.03); White Blood Cell (WBC) Count 8.5 10x3/uL (3.5-10.5)
[2022-09-20 04:24] LABS: Anion Gap 12 mmol/L (10-20); BUN (Urea Nitrogen) 40 mg/dL (9.8-20.1); Calc. Creatinine Clearance 33 mL/min (70-130); Calcium 8.9 mg/dL (7.8-10.44); Carbon Dioxide 29 mmol/L (23-31); Chloride 118 mmol/L (98-107); Estimated GFR 67; Glucose 204 mg/dL (83-110); Magnesium 2.4 mg/dL (1.6-2.6); Potassium 3.8 mmol/L (3.5-5.1)
[2022-09-20 04:33] LABS: Sodium 155 mmol/L (136-145)
[2022-09-20] MEDS: Dextrose 5% in Water 1,000 ML IV SCH ×2 (08:29→14:35)
[2022-09-20] MEDS: Aspirin Chewable 81 MG TAB PO SCH (08:34)
[2022-09-20] MEDS: Ampicillin/Sulbactam 3 GM in Sodium Chloride 0.9% 100 ML IVPB SCH ×3 (08:34→22:08)
[2022-09-20] MEDS: Carvedilol 6.25 MG TAB PO SCH ×2 (08:34→13:48)
[2022-09-20] MEDS: Digoxin 0.125 MG TAB PO SCH (08:34)
[2022-09-20] MEDS: Carbidopa/Levodopa 25-100 mg Tablet PO SCH ×3 (08:44→22:09)
[2022-09-20] MEDS ORDERED: Dextrose 5% in Water 1,000 ML IV SCH (10:00)
[2022-09-20] MEDS: HumaLOG 300 UNITS/3 ML VIAL SC PRN ×3 (12:38→22:08)
[2022-09-20 17:11] LABS: Anion Gap 14 mmol/L (10-20); BUN (Urea Nitrogen) 33 mg/dL (9.8-20.1); Calc. Creatinine Clearance 35 mL/min (70-130); Calcium 8.6 mg/dL (7.8-10.44); Carbon Dioxide 23 mmol/L (23-31); Chloride 117 mmol/L (98-107); Estimated GFR 70; Glucose 232 mg/dL (83-110); Sodium 149 mmol/L (136-145)
[2022-09-20 17:13] LABS: Potassium 4.5 mmol/L (3.5-5.1)
[2022-09-20] MEDS: Donepezil HCl 5 MG TAB PO SCH (22:09)
[2022-09-20] MEDS: Lantus 1000 UNITS/10 ML VIAL SC SCH (22:10)
[2022-09-21] MEDS: Ampicillin/Sulbactam 3 GM in Sodium Chloride 0.9% 100 ML IVPB SCH ×4 (03:33→22:48)
[2022-09-21 03:37] LABS: Anion Gap 10 mmol/L (10-20); BUN (Urea Nitrogen) 29 mg/dL (9.8-20.1); Calc. Creatinine Clearance 37 mL/min (70-130); Calcium 8.7 mg/dL (7.8-10.44); Carbon Dioxide 27 mmol/L (23-31); Chloride 115 mmol/L (98-107); Estimated GFR 76; Glucose 132 mg/dL (83-110); Magnesium 2.3 mg/dL (1.6-2.6); Potassium 3.9 mmol/L (3.5-5.1); Sodium 148 mmol/L (136-145)
[2022-09-21] MEDS: Carvedilol 6.25 MG TAB PO SCH ×2 (08:25→13:40)
[2022-09-21] MEDS: Aspirin Chewable 81 MG TAB PO SCH (08:25)
[2022-09-21] MEDS: Digoxin 0.125 MG TAB PO SCH (08:25)
[2022-09-21] MEDS: Dextrose 5% in Water 1,000 ML IV SCH (08:26)
[2022-09-21] MEDS: Carbidopa/Levodopa 25-100 mg Tablet PO SCH ×3 (08:26→22:49)
[2022-09-21] MEDS: HumaLOG 300 UNITS/3 ML VIAL SC PRN ×2 (17:52→22:51)
[2022-09-21] MEDS: Donepezil HCl 5 MG TAB PO SCH (22:49)
[2022-09-21] MEDS: Lantus 1000 UNITS/10 ML VIAL SC SCH (22:51)
[2022-09-22] MEDS: Ampicillin/Sulbactam 3 GM in Sodium Chloride 0.9% 100 ML IVPB SCH ×4 (04:05→21:37)
[2022-09-22] MEDS: Dextrose 5% in Water 1,000 ML IV SCH (06:06)
[2022-09-22 08:54] LABS: Anion Gap 13 mmol/L (10-20); BUN (Urea Nitrogen) 22 mg/dL (9.8-20.1); Calc. Creatinine Clearance 43 mL/min (70-130); Calcium 8.4 mg/dL (7.8-10.44); Carbon Dioxide 23 mmol/L (23-31); Chloride 113 mmol/L (98-107); Estimated GFR 87; Glucose 130 mg/dL (83-110); Sodium 145 mmol/L (136-145)
[2022-09-22] MEDS: Aspirin Chewable 81 MG TAB PO SCH (10:34)
[2022-09-22] MEDS: Carbidopa/Levodopa 25-100 mg Tablet PO SCH ×3 (10:34→21:39)
[2022-09-22] MEDS: Carvedilol 6.25 MG TAB PO SCH ×2 (10:34→17:31)
[2022-09-22] MEDS: Digoxin 0.125 MG TAB PO SCH (10:35)
[2022-09-22] MEDS: HumaLOG 300 UNITS/3 ML VIAL SC PRN ×2 (13:30→21:43)
[2022-09-22] MEDS ORDERED: Ampicillin/Sulbactam 3 GM VIAL ONE (21:34)
[2022-09-22] MEDS: Donepezil HCl 5 MG TAB PO SCH (21:39)
[2022-09-22] MEDS: Lantus 1000 UNITS/10 ML VIAL SC SCH (21:42)
[2022-09-23] MEDS: Ampicillin/Sulbactam 3 GM in Sodium Chloride 0.9% 100 ML IVPB SCH ×3 (04:57→16:05)
[2022-09-23 05:01] LABS: Anion Gap 8 mmol/L (10-20); BUN (Urea Nitrogen) 21 mg/dL (9.8-20.1); Calc. Creatinine Clearance 43 mL/min (70-130); Calcium 8.4 mg/dL (7.8-10.44); Carbon Dioxide 26 mmol/L (23-31); Chloride 114 mmol/L (98-107); Estimated GFR 87; Glucose 96 mg/dL (83-110); Magnesium 2.2 mg/dL (1.6-2.6); Potassium 3.9 mmol/L (3.5-5.1); Sodium 144 mmol/L (136-145)
[2022-09-23] MEDS: Carbidopa/Levodopa 25-100 mg Tablet PO SCH ×2 (08:46→16:06)
[2022-09-23] MEDS: Digoxin 0.125 MG TAB PO SCH (08:46)
[2022-09-23] MEDS: Aspirin Chewable 81 MG TAB PO SCH (08:46)
[2022-09-23] MEDS: Carvedilol 6.25 MG TAB PO SCH (08:46)
[2022-09-23 16:49] VITALS: BP 134/72; TEMP 98.9
[2022-09-23 20:22] LABS: Hemoglobin A1c 7.7 % (4.0-6.0)
== END 2022-09-23 20:05 | disposition home or self-care (01) | DRG 175 ==
LOC: CSHERS 15:55 → CSHERHOLD 21:17 → CSHTELE 09-14 07:05 → CSHIMCU 09-16 08:01 → CSHTELE 09-17 15:05
PROVIDERS: ADMIT Family Medicine; ATTEND Internal Medicine
PROC: 5A0935A Assistance with Respiratory Ventilation, Less than 24 Consecutive Hours, High Flow/Velocity Cannula (ICD-10-PCS; 2022-09-13)
PROC: 4A043R1 Measurement of Venous Saturation, Peripheral, Percutaneous Approach (ICD-10-PCS; principal; 2022-09-16)
DX: I26.99 Other pulmonary embolism without acute cor pulmonale (principal); E43 Unspecified severe protein-calorie malnutrition; I50.23 Acute on chronic systolic (congestive) heart failure; J96.01 Acute respiratory failure with hypoxia; J69.0 Pneumonitis due to inhalation of food and vomit; I42.8 Other cardiomyopathies; N17.9 Acute kidney failure, unspecified; E87.1 Hypo-osmolality and hyponatremia; I13.0 Hypertensive heart and chronic kidney disease with heart failure and stage 1 through stage 4 chronic kidney disease, or unspecified chronic kidney disease; Z68.1 Body mass index [BMI] 19.9 or less, adult; I47.1 Supraventricular tachycardia; E87.0 Hyperosmolality and hypernatremia; N39.0 Urinary tract infection, site not specified; G20 Parkinson's disease; Z51.5 Encounter for palliative care; I44.7 Left bundle-branch block, unspecified; G93.89 Other specified disorders of brain; G30.9 Alzheimer's disease, unspecified; E78.5 Hyperlipidemia, unspecified; I34.0 Nonrheumatic mitral (valve) insufficiency; I48.91 Unspecified atrial fibrillation; I27.20 Pulmonary hypertension, unspecified; E86.0 Dehydration; R33.9 Retention of urine, unspecified; F02.C0 Dementia in other diseases classified elsewhere, severe, without behavioral disturbance, psychotic disturbance, mood disturbance, and anxiety; R13.10 Dysphagia, unspecified; N18.9 Chronic kidney disease, unspecified; E11.22 Type 2 diabetes mellitus with diabetic chronic kidney disease; E11.65 Type 2 diabetes mellitus with hyperglycemia; Z79.52 Long term (current) use of systemic steroids; Z79.891 Long term (current) use of opiate analgesic; Z79.82 Long term (current) use of aspirin; Z79.2 Long term (current) use of antibiotics; Z98.890 Other specified postprocedural states; Z87.81 Personal history of (healed) traumatic fracture; Z86.711 Personal history of pulmonary embolism
CPT/HCPCS: 36415; 36416; 51701; 70450; 71045; 71275; 72125; 80048; 80053; 81001; 82550; 82553; 82805; 83036; 83605; 83690; 83735; 83880; 84145; 84443; 84484; 84550; 85025; 87040; 87086; 93005; 93010; 93306; 94760; 94762; 96365; 96366; 96367; 96372; 96375; J0153; J0295; J0456; J0696; J1160; J1650; J1815; J1940; J3480; J3490; J7030; J7070; Q9967

== ENCOUNTER 2022-11-15 13:15 | Emergency (ER) | payer MEDICARE ==
[2022-11-15 14:54] LABS: #Eosinphils 0.1 10x3/uL (0.0-0.5); #Monocytes 0.8 10x3/uL (0.0-1.1); #Neutrophils 9.1 10x3/uL (1.5-8.4); %Basophils 0.4 % (0.0-2.0); %Eosinophils 1.1 % (0.0-6.0); %Lymphocytes 10.2 % (18.0-47.0); %Monocytes 7.4 % (0.0-10.0); %Neutrophils 80.3 % (40.0-75.0); Hematocrit 33.8 % (34.9-44.5); Hemoglobin 11.2 g/dL (12.0-15.5); Mean Corpuscular HGB CONC 33.1 g/dL (32.0-36.0); Mean Corpuscular Hemoglobin 31.4 pg (27.0-33.0); Mean Corpuscular Volume 94.7 fl (81.6-98.3); Mean Platelet Volume 9.6 fl (7.4-10.4); Platelet Count 321 10x3/uL (150-450); RBC Distribution Width 13.6 % (11.5-14.5); Red Blood Cell (RBC) Count 3.57 10x6/uL (3.90-5.03); White Blood Cell (WBC) Count 11.3 10x3/uL (3.5-10.5)
[2022-11-15 15:08] LABS: INR-International Normal Ratio 1.1; PTT 22.8 sec (22.0-33.0); Prothrombin Time 11.3 sec (9.5-12.1)
[2022-11-15 15:11] LABS: ALT (SGPT) Less than 7 U/L (8-55); AST (SGOT) 12 U/L (5-34); Albumin 2.9 g/dL (3.4-4.8); Alkaline Phosphatase 60 U/L (40-110); Anion Gap 14 mmol/L (10-20); BUN (Urea Nitrogen) 16 mg/dL (9.8-20.1); Bilirubin, Total 0.3 mg/dL (0.2-1.2); Calc. Creatinine Clearance 0 mL/min (70-130); Calcium 8.2 mg/dL (7.8-10.44); Carbon Dioxide 21 mmol/L (23-31); Chloride 108 mmol/L (98-107); Estimated GFR 87; Globulin 2.2 g/dL (2.4-3.5); Glucose 173 mg/dL (83-110); Potassium 4.2 mmol/L (3.5-5.1); Protein, Total 5.1 g/dL (5.8-8.1); Sodium 139 mmol/L (136-145)
== END 2022-11-15 18:10 | disposition home or self-care (01) ==
LOC: CSHERS 13:15
DX: L89.90 Pressure ulcer of unspecified site, unspecified stage (principal); Z79.899 Other long term (current) drug therapy
CPT/HCPCS: 36415; 71045; 72170; 80053; 84443; 84484; 85025; 85610; 85652; 85730; 93005

== ENCOUNTER 2022-11-26 09:51 | Outpatient (CLI) | payer MEDICARE | END 2022-11-26 09:52 | disposition home or self-care (01) | LOC: CSHWCC 09:51 | PROVIDERS: ATTEND Nurse Practitioner Family | DX: L89.153 Pressure ulcer of sacral region, stage 3 (principal); L89.220 Pressure ulcer of left hip, unstageable; L89.210 Pressure ulcer of right hip, unstageable | CPT/HCPCS: 11042; 97139; G0463; 99203 ==

== ENCOUNTER 2022-12-14 15:24 | Outpatient (CLI) | payer MEDICARE | END 2022-12-14 15:25 | disposition home or self-care (01) | LOC: CSHWCC 15:24 | PROVIDERS: ATTEND Nurse Practitioner Family | DX: L89.220 Pressure ulcer of left hip, unstageable (principal); L89.210 Pressure ulcer of right hip, unstageable; L89.153 Pressure ulcer of sacral region, stage 3 | CPT/HCPCS: 11042 ==

== ENCOUNTER 2023-01-26 13:07 | Outpatient (CLI) | payer MEDICARE | END 2023-01-26 13:08 | disposition home or self-care (01) | LOC: CSHWCC 13:07 | PROVIDERS: ATTEND Preventive Medicine Undersea and Hyperbaric Medicine | DX: L89.220 Pressure ulcer of left hip, unstageable (principal); L89.210 Pressure ulcer of right hip, unstageable | CPT/HCPCS: 11043 ==

== ENCOUNTER 2023-02-16 08:31 | Outpatient (CLI) | payer MEDICARE | END 2023-02-16 08:32 | disposition home or self-care (01) | LOC: CSHWCC 08:31 | PROVIDERS: ATTEND Physician Assistant | DX: L89.220 Pressure ulcer of left hip, unstageable (principal); L89.210 Pressure ulcer of right hip, unstageable | CPT/HCPCS: 36416; 97597 ==

== ENCOUNTER 2023-02-28 15:51 | Emergency (ER) | payer MEDICARE ==
[2023-02-28 16:53] LABS: #Eosinphils 0.1 10x3/uL (0.0-0.5); #Monocytes 0.6 10x3/uL (0.0-1.1); #Neutrophils 7.8 10x3/uL (1.5-8.4); %Basophils 0.3 % (0.0-2.0); %Eosinophils 1.2 % (0.0-6.0); %Lymphocytes 10.7 % (18.0-47.0); %Neutrophils 81.5 % (40.0-75.0); Mean Corpuscular HGB CONC 31.6 g/dL (32.0-36.0); Mean Corpuscular Hemoglobin 30.3 pg (27.0-33.0); Mean Platelet Volume 11.2 fl (7.4-10.4); Platelet Count 262 10x3/uL (150-450); RBC Distribution Width 15.6 % (11.5-14.5); Red Blood Cell (RBC) Count 3.96 10x6/uL (3.90-5.03); White Blood Cell (WBC) Count 9.6 10x3/uL (3.5-10.5)
[2023-02-28 17:11] LABS: ALT (SGPT) Less than 7 U/L (8-55); AST (SGOT) 9 U/L (5-34); Albumin 3.2 g/dL (3.4-4.8); Alkaline Phosphatase 64 U/L (40-110); Anion Gap 13 mmol/L (10-20); BUN (Urea Nitrogen) 27 mg/dL (9.8-20.1); Bilirubin, Total 0.5 mg/dL (0.2-1.2); Calc. Creatinine Clearance 0 mL/min (70-130); Calcium 8.7 mg/dL (7.8-10.44); Carbon Dioxide 21 mmol/L (23-31); Chloride 113 mmol/L (98-107); Estimated GFR 67; Globulin 3.3 g/dL (2.4-3.5); Glucose 355 mg/dL (83-110); Magnesium 2.1 mg/dL (1.6-2.6); Potassium 4.1 mmol/L (3.5-5.1); Protein, Total 6.5 g/dL (5.8-8.1); Sodium 143 mmol/L (136-145)
[2023-02-28 17:45] LABS: SARS-CoV-2 NAA Rapid Test Not Detected (NotDetected)
== END 2023-02-28 18:40 | disposition home or self-care (01) ==
LOC: CSHERS 15:51
DX: L89.229 Pressure ulcer of left hip, unspecified stage (principal); L89.219 Pressure ulcer of right hip, unspecified stage; L98.499 Non-pressure chronic ulcer of skin of other sites with unspecified severity
CPT/HCPCS: 0240U; 71045; 72193; 80053; 83605; 83735; 85025; 87040; 93005; 94760; 99284; 36415; Q9967

== ENCOUNTER 2023-03-16 13:15 | Outpatient (CLI) | payer MEDICARE | END 2023-03-16 13:16 | disposition home or self-care (01) | LOC: CSHWCC 13:15 | PROVIDERS: ATTEND Physician Assistant | DX: L89.220 Pressure ulcer of left hip, unstageable (principal); L89.210 Pressure ulcer of right hip, unstageable | CPT/HCPCS: 97597 ==

== ENCOUNTER 2023-03-31 13:58 | Outpatient (CLI) | payer MEDICARE | END 2023-03-31 13:59 | disposition home or self-care (01) | LOC: CSHWCC 13:58 | PROVIDERS: ATTEND Physician Assistant | DX: L89.220 Pressure ulcer of left hip, unstageable (principal); L89.210 Pressure ulcer of right hip, unstageable | CPT/HCPCS: 97605 ==

== ENCOUNTER 2023-04-21 15:01 | Inpatient (IN) | payer MEDICARE ==
[2023-04-21] MEDS ORDERED: Piperacillin/Tazobactam 3.375 GM VIAL ONE (16:36)
[2023-04-21] MEDS ORDERED: Furosemide 40 MG (4 mL) VIAL ONE (16:36)
[2023-04-21 16:47] LABS: #Eosinphils 0.1 10x3/uL (0.0-0.5); #Monocytes 0.7 10x3/uL (0.0-1.1); #Neutrophils 6.6 10x3/uL (1.5-8.4); %Basophils 0.4 % (0.0-2.0); %Eosinophils 1.5 % (0.0-6.0); %Lymphocytes 11.2 % (18.0-47.0); %Monocytes 8.6 % (0.0-10.0); %Neutrophils 77.8 % (40.0-75.0); Hematocrit 39.8 % (34.9-44.5); Hemoglobin 12.6 g/dL (12.0-15.5); Mean Corpuscular HGB CONC 31.7 g/dL (32.0-36.0); Mean Corpuscular Hemoglobin 30.7 pg (27.0-33.0); Mean Corpuscular Volume 97.1 fl (81.6-98.3); Mean Platelet Volume 10.3 fl (7.4-10.4); Platelet Count 266 10x3/uL (150-450); RBC Distribution Width 17.2 % (11.5-14.5); White Blood Cell (WBC) Count 8.5 10x3/uL (3.5-10.5)
[2023-04-21 17:04] LABS: ALT (SGPT) Less than 7 U/L (8-55); AST (SGOT) 12 U/L (5-34); Alkaline Phosphatase 60 U/L (40-110); Anion Gap 16 mmol/L (10-20); BUN (Urea Nitrogen) 35 mg/dL (9.8-20.1); Bilirubin, Total 0.5 mg/dL (0.2-1.2); Calc. Creatinine Clearance 0 mL/min (70-130); Calcium 8.7 mg/dL (7.8-10.44); Carbon Dioxide 17 mmol/L (23-31); Chloride 113 mmol/L (98-107); Estimated GFR 66; Globulin 2.8 g/dL (2.4-3.5); Glucose 194 mg/dL (83-110); Potassium 4.5 mmol/L (3.5-5.1); Protein, Total 5.8 g/dL (5.8-8.1); Sodium 141 mmol/L (136-145)
[2023-04-21] MEDS ORDERED: Acetaminophen 325 MG TAB PO PRN (18:34)
[2023-04-21] MEDS ORDERED: HYDROcodone/Acetaminophen 5/325 mg Tablet PO PRN (18:34)
[2023-04-21] MEDS ORDERED: Ondansetron PF 4 MG/2 ML Vial IVP PRN (18:34)
[2023-04-21] MEDS ORDERED: Dextrose 50% Abboject 50 ML SYRINGE SLOW IVP PRN (18:57)
[2023-04-21] MEDS ORDERED: Glucagon 1 MG/ML KIT IM PRN (18:57)
[2023-04-21] MEDS ORDERED: Dextrose 5% in Water 1,000 ML IV PRN (18:57)
[2023-04-21] MEDS ORDERED: Famotidine 20 MG TAB PO SCH (21:00)
[2023-04-21] MEDS: Azithromycin 500 MG in Sodium Chloride 0.9% 250 ML 250 ML IVPB SCH (21:30)
[2023-04-21] MEDS ORDERED: Azithromycin 500 MG VIAL ONE (21:34)
[2023-04-21] MEDS ORDERED: cefTRIAXone (ROCEPHIN) 1 GM VIAL ONE (21:34)
[2023-04-21] MEDS ORDERED: Apixaban 5 MG TAB ONE (21:34)
[2023-04-21] MEDS ORDERED: Famotidine 20 MG TAB ONE (21:39)
[2023-04-21] MEDS: Carbidopa/Levodopa 25-100 mg Tablet PO SCH (21:51)
[2023-04-21] MEDS: cefTRIAXone\\ROCEPHIN 1 GM in Sodium Chloride 0.9% 100 ML IVPB SCH (21:51)
[2023-04-21] MEDS: Apixaban 2.5 MG TAB PO SCH (21:51)
[2023-04-21 22:20] LABS: Hemoglobin A1c 8.6 % (4.0-6.0)
[2023-04-22 04:34] LABS: #Basophils 0.1 10x3/uL (0.0-0.2); #Eosinphils 0.2 10x3/uL (0.0-0.5); #Monocytes 0.6 10x3/uL (0.0-1.1); #Neutrophils 6.2 10x3/uL (1.5-8.4); %Basophils 0.7 % (0.0-2.0); %Eosinophils 2.1 % (0.0-6.0); %Lymphocytes 12.5 % (18.0-47.0); %Monocytes 7.1 % (0.0-10.0); %Neutrophils 76.4 % (40.0-75.0); Hematocrit 37.8 % (34.9-44.5); Hemoglobin 12.2 g/dL (12.0-15.5); Mean Corpuscular HGB CONC 32.3 g/dL (32.0-36.0); Mean Corpuscular Volume 95.9 fl (81.6-98.3); Mean Platelet Volume 10.7 fl (7.4-10.4); Platelet Count 245 10x3/uL (150-450); RBC Distribution Width 17.1 % (11.5-14.5); Red Blood Cell (RBC) Count 3.94 10x6/uL (3.90-5.03); White Blood Cell (WBC) Count 8.1 10x3/uL (3.5-10.5)
[2023-04-22 04:50] LABS: Anion Gap 16 mmol/L (10-20); BUN (Urea Nitrogen) 33 mg/dL (9.8-20.1); Calc. Creatinine Clearance 40 mL/min (70-130); Calcium 8.6 mg/dL (7.8-10.44); Carbon Dioxide 17 mmol/L (23-31); Chloride 110 mmol/L (98-107); Estimated GFR 63; Glucose 162 mg/dL (83-110); Magnesium 1.6 mg/dL (1.6-2.6); Sodium 138 mmol/L (136-145)
[2023-04-22] MEDS: Furosemide 40 MG (4 mL) VIAL SLOW IVP SCH ×2 (06:36→13:55)
[2023-04-22] MEDS ORDERED: Magnesium 2 GM/50 ML(in water) 2 GM in Premix 1 BAG IVPB SCH (09:00)
[2023-04-22] MEDS: Apixaban 2.5 MG TAB PO SCH ×2 (09:34→21:18)
[2023-04-22] MEDS: Digoxin 0.125 MG TAB PO SCH (09:34)
[2023-04-22] MEDS: Famotidine 20 MG TAB PO SCH (09:34)
[2023-04-22] MEDS: Aspirin Chewable 81 MG TAB PO SCH (09:34)
[2023-04-22] MEDS: Carbidopa/Levodopa 25-100 mg Tablet PO SCH ×3 (09:36→23:22)
[2023-04-22] MEDS: HumaLOG 300 UNITS/3 ML VIAL SC PRN (10:40)
[2023-04-22] MEDS: cefTRIAXone\\ROCEPHIN 1 GM in Sodium Chloride 0.9% 100 ML IVPB SCH (21:21)
[2023-04-22] MEDS: Azithromycin 500 MG in Sodium Chloride 0.9% 250 ML 250 ML IVPB SCH (21:27)
[2023-04-23 06:06] LABS: #Eosinphils 0.2 10x3/uL (0.0-0.5); #Monocytes 0.6 10x3/uL (0.0-1.1); #Neutrophils 5.3 10x3/uL (1.5-8.4); %Basophils 0.4 % (0.0-2.0); %Eosinophils 3.1 % (0.0-6.0); %Lymphocytes 12.7 % (18.0-47.0); %Monocytes 8.9 % (0.0-10.0); %Neutrophils 74.6 % (40.0-75.0); Hematocrit 36.7 % (34.9-44.5); Hemoglobin 12.1 g/dL (12.0-15.5); Mean Corpuscular Hemoglobin 31.4 pg (27.0-33.0); Mean Corpuscular Volume 95.3 fl (81.6-98.3); Mean Platelet Volume 10.9 fl (7.4-10.4); Platelet Count 249 10x3/uL (150-450); RBC Distribution Width 16.8 % (11.5-14.5); Red Blood Cell (RBC) Count 3.85 10x6/uL (3.90-5.03); White Blood Cell (WBC) Count 7.1 10x3/uL (3.5-10.5)
[2023-04-23 06:09] LABS: Anion Gap 15 mmol/L (10-20); BUN (Urea Nitrogen) 35 mg/dL (9.8-20.1); Calc. Creatinine Clearance 43 mL/min (70-130); Carbon Dioxide 28 mmol/L (23-31); Chloride 108 mmol/L (98-107); Estimated GFR 70; Glucose 147 mg/dL (83-110); Potassium 3.4 mmol/L (3.5-5.1); Sodium 148 mmol/L (136-145)
[2023-04-23] MEDS ORDERED: Potassium Chloride 20 MEQ TAB PO SCH (08:00)
[2023-04-23] MEDS: Famotidine 20 MG TAB PO SCH (08:55)
[2023-04-23] MEDS: Aspirin Chewable 81 MG TAB PO SCH (08:55)
[2023-04-23] MEDS: Carbidopa/Levodopa 25-100 mg Tablet PO SCH ×3 (08:55→20:44)
[2023-04-23] MEDS: Apixaban 2.5 MG TAB PO SCH ×2 (08:56→20:39)
[2023-04-23] MEDS: Digoxin 0.125 MG TAB PO SCH (08:56)
[2023-04-23] MEDS: HumaLOG 300 UNITS/3 ML VIAL SC PRN ×2 (12:00→18:09)
[2023-04-23] MEDS: cefTRIAXone\\ROCEPHIN 1 GM in Sodium Chloride 0.9% 100 ML IVPB SCH (20:37)
[2023-04-23] MEDS: Azithromycin 500 MG in Sodium Chloride 0.9% 250 ML 250 ML IVPB SCH (20:39)
[2023-04-23] MEDS ORDERED: Carvedilol 3.125 MG TAB PO SCH (21:45)
[2023-04-24 06:10] LABS: #Eosinphils 0.2 10x3/uL (0.0-0.5); #Monocytes 0.7 10x3/uL (0.0-1.1); #Neutrophils 5.8 10x3/uL (1.5-8.4); %Basophils 0.5 % (0.0-2.0); %Lymphocytes 12.9 % (18.0-47.0); %Monocytes 8.8 % (0.0-10.0); %Neutrophils 74.5 % (40.0-75.0); Hematocrit 36.4 % (34.9-44.5); Hemoglobin 11.6 g/dL (12.0-15.5); Mean Corpuscular HGB CONC 31.9 g/dL (32.0-36.0); Mean Corpuscular Hemoglobin 31.6 pg (27.0-33.0); Mean Corpuscular Volume 99.2 fl (81.6-98.3); Mean Platelet Volume 10.9 fl (7.4-10.4); Platelet Count 239 10x3/uL (150-450); Red Blood Cell (RBC) Count 3.67 10x6/uL (3.90-5.03); White Blood Cell (WBC) Count 7.7 10x3/uL (3.5-10.5)
[2023-04-24 06:23] LABS: Anion Gap 12 mmol/L (10-20); BUN (Urea Nitrogen) 37 mg/dL (9.8-20.1); Calc. Creatinine Clearance 47 mL/min (70-130); Calcium 8.9 mg/dL (7.8-10.44); Carbon Dioxide 28 mmol/L (23-31); Chloride 113 mmol/L (98-107); Estimated GFR 79; Glucose 109 mg/dL (83-110); Potassium 4.3 mmol/L (3.5-5.1); Sodium 149 mmol/L (136-145)
[2023-04-24] MEDS: Apixaban 2.5 MG TAB PO SCH ×2 (08:12→20:19)
[2023-04-24] MEDS: Digoxin 0.125 MG TAB PO SCH (08:12)
[2023-04-24] MEDS: Carbidopa/Levodopa 25-100 mg Tablet PO SCH ×3 (08:12→20:19)
[2023-04-24] MEDS: Aspirin Chewable 81 MG TAB PO SCH (08:12)
[2023-04-24] MEDS: Carvedilol 3.125 MG TAB PO SCH ×2 (08:12→16:05)
[2023-04-24] MEDS: Famotidine 20 MG TAB PO SCH (08:12)
[2023-04-24] MEDS: Dextrose 5% in Water 1,000 ML IV SCH (12:18)
[2023-04-24] MEDS: HumaLOG 300 UNITS/3 ML VIAL SC PRN (16:59)
[2023-04-24] MEDS: cefTRIAXone\\ROCEPHIN 1 GM in Sodium Chloride 0.9% 100 ML IVPB SCH (20:07)
[2023-04-24] MEDS: Sacubitril 24MG/Valsartan 26 MG TAB PO SCH (20:19)
[2023-04-24] MEDS: Azithromycin 500 MG in Sodium Chloride 0.9% 250 ML 250 ML IVPB SCH (20:42)
[2023-04-25 04:03] LABS: #Eosinphils 0.3 10x3/uL (0.0-0.5); #Monocytes 0.6 10x3/uL (0.0-1.1); #Neutrophils 5.1 10x3/uL (1.5-8.4); %Basophils 0.6 % (0.0-2.0); %Eosinophils 4.6 % (0.0-6.0); %Lymphocytes 14.5 % (18.0-47.0); %Monocytes 8.1 % (0.0-10.0); %Neutrophils 71.6 % (40.0-75.0); Hematocrit 39.6 % (34.9-44.5); Hemoglobin 12.2 g/dL (12.0-15.5); Mean Corpuscular HGB CONC 30.8 g/dL (32.0-36.0); Mean Corpuscular Hemoglobin 30.2 pg (27.0-33.0); Mean Platelet Volume 10.6 fl (7.4-10.4); Platelet Count 228 10x3/uL (150-450); RBC Distribution Width 16.8 % (11.5-14.5); Red Blood Cell (RBC) Count 4.04 10x6/uL (3.90-5.03); White Blood Cell (WBC) Count 7.2 10x3/uL (3.5-10.5)
[2023-04-25 04:12] LABS: Anion Gap 11 mmol/L (10-20); BUN (Urea Nitrogen) 35 mg/dL (9.8-20.1); Calc. Creatinine Clearance 48 mL/min (70-130); Calcium 8.8 mg/dL (7.8-10.44); Carbon Dioxide 30 mmol/L (23-31); Chloride 107 mmol/L (98-107); Estimated GFR 82; Glucose 194 mg/dL (83-110); Potassium 3.9 mmol/L (3.5-5.1); Sodium 144 mmol/L (136-145)
[2023-04-25] MEDS: Dextrose 5% in Water 1,000 ML IV SCH (05:56)
[2023-04-25] MEDS: Sacubitril 24MG/Valsartan 26 MG TAB PO SCH (08:41)
[2023-04-25] MEDS: Carbidopa/Levodopa 25-100 mg Tablet PO SCH (08:41)
[2023-04-25] MEDS: Digoxin 0.125 MG TAB PO SCH (08:41)
[2023-04-25] MEDS: Apixaban 2.5 MG TAB PO SCH (08:41)
[2023-04-25] MEDS: Carvedilol 3.125 MG TAB PO SCH (08:41)
[2023-04-25] MEDS: Aspirin Chewable 81 MG TAB PO SCH (08:41)
[2023-04-25] MEDS: Famotidine 20 MG TAB PO SCH (08:41)
[2023-04-25 10:49] VITALS: BMI 21.2
[2023-04-25 12:08] VITALS: BP 128/60; TEMP 97.8
[2023-04-25] MEDS: HumaLOG 300 UNITS/3 ML VIAL SC PRN (12:41)
== END 2023-04-25 14:06 | disposition home health service (06) | DRG 193 ==
LOC: SUATTDRO 15:01 → EEVIPCON 15:01 → CSHERS 15:01 → CSHERHOLD 18:33 → CSHTELE 04-22 00:51
PROVIDERS: ADMIT Internal Medicine; ATTEND Internal Medicine
DX: J18.9 Pneumonia, unspecified organism (principal); I50.23 Acute on chronic systolic (congestive) heart failure; L89.223 Pressure ulcer of left hip, stage 3; L89.213 Pressure ulcer of right hip, stage 3; L89.153 Pressure ulcer of sacral region, stage 3; J96.01 Acute respiratory failure with hypoxia; E87.0 Hyperosmolality and hypernatremia; I48.0 Paroxysmal atrial fibrillation; I11.0 Hypertensive heart disease with heart failure; F03.90 Unspecified dementia, unspecified severity, without behavioral disturbance, psychotic disturbance, mood disturbance, and anxiety; E11.65 Type 2 diabetes mellitus with hyperglycemia; Z79.82 Long term (current) use of aspirin; Z79.899 Other long term (current) drug therapy; Z98.890 Other specified postprocedural states; Z86.711 Personal history of pulmonary embolism
CPT/HCPCS: 36415; 36416; 71045; 80048; 80053; 83036; 83735; 83880; 84484; 85025; 87040; 93005; 93306; 96374; 96375; 97139; J0456; J0696; J1815; J1940; J2543; J3475; J3490; J7050; J7070

== ENCOUNTER 2023-04-28 13:42 | Outpatient (CLI) | payer MEDICARE | END 2023-04-28 13:43 | disposition home or self-care (01) | LOC: CSHWCC 13:42 | PROVIDERS: ATTEND Preventive Medicine Undersea and Hyperbaric Medicine | DX: L89.220 Pressure ulcer of left hip, unstageable (principal); L89.210 Pressure ulcer of right hip, unstageable | CPT/HCPCS: 97605 ==

== ENCOUNTER 2023-05-12 15:45 | Outpatient (CLI) | payer MEDICARE | END 2023-05-12 15:46 | disposition home or self-care (01) | LOC: CSHWCC 15:45 | PROVIDERS: ATTEND Nurse Practitioner Family | DX: L89.301 Pressure ulcer of unspecified buttock, stage 1 (principal); L89.220 Pressure ulcer of left hip, unstageable; L89.210 Pressure ulcer of right hip, unstageable; I69.30 Unspecified sequelae of cerebral infarction; G82.22 Paraplegia, incomplete | CPT/HCPCS: 11042 ==

== ENCOUNTER 2023-05-23 16:17 | Inpatient (IN) | payer MEDICARE ==
[2023-05-23 17:34] LABS: Actual Bicarbonate (HCO3a) 24.3 mEq/L (22-28); Analyzer IN Cardio CS ER; Base Excess (BEa) -0.2 mEq/L (-2.0 to +3.0); CO2 Tension 39.2 mmHg (35.0-45.0); Calcium, Ionized (arterial) 1.18 mmol/L (1.12-1.30); Carboxyhemoglobin (COHb) 0.6 gm% (0.0-3.0); Hematocrit-ABG 39 % (36.0-47.0); Hemoglobin (Hb) 13.2 g/dL (12.0-16.0); O2 Tension (PaO2), arterial 93.3 mmHg (> 60.0); Potassium - ABG Lab 3.84 mmol/L (3.70-5.30); Puncture Site RRA
[2023-05-23 17:35] LABS: #Eosinphils 0.1 10x3/uL (0.0-0.5); #Monocytes 0.6 10x3/uL (0.0-1.1); %Basophils 0.5 % (0.0-2.0); %Eosinophils 1.4 % (0.0-6.0); %Lymphocytes 13.3 % (18.0-47.0); %Monocytes 9.2 % (0.0-10.0); %Neutrophils 75.3 % (40.0-75.0); Hemoglobin 12.8 g/dL (12.0-15.5); Mean Corpuscular HGB CONC 33.7 g/dL (32.0-36.0); Mean Corpuscular Hemoglobin 31.8 pg (27.0-33.0); Mean Corpuscular Volume 94.5 fl (81.6-98.3); Platelet Count 273 10x3/uL (150-450); RBC Distribution Width 15.1 % (11.5-14.5); Red Blood Cell (RBC) Count 4.02 10x6/uL (3.90-5.03); White Blood Cell (WBC) Count 6.6 10x3/uL (3.5-10.5)
[2023-05-23 17:49] LABS: Bilirubin Neg (Negative); Blood, Urine 150 (Negative); Clarity Cloudy (Clear); Glucose, Urine (Dipstick) Normal (Negative); Ketone, Urine 5 mg/dL (Negative); Leukocyte 500 (Negative); Nitrite Negative (Negative); Protein, Urine (Dipstick) 100 mg/dl (Neg-Trace); Specific Gravity, Urine 1.025 (1.005-1.030); Urobilinogen Normal mg/dL (Less than 2)
[2023-05-23 17:50] LABS: ALT (SGPT) Less than 7 U/L (8-55); AST (SGOT) 9 U/L (5-34); Albumin 3.2 g/dL (3.4-4.8); Alkaline Phosphatase 56 U/L (40-110); Anion Gap 13 mmol/L (10-20); BUN (Urea Nitrogen) 24 mg/dL (9.8-20.1); Bilirubin, Total 0.5 mg/dL (0.2-1.2); Calc. Creatinine Clearance 0 mL/min (70-130); Calcium 8.6 mg/dL (7.8-10.44); Carbon Dioxide 24 mmol/L (23-31); Chloride 107 mmol/L (98-107); Estimated GFR 71; Globulin 2.5 g/dL (2.4-3.5); Glucose 165 mg/dL (83-110); Protein, Total 5.7 g/dL (5.8-8.1); Sodium 140 mmol/L (136-145)
[2023-05-23 17:54] LABS: Troponin I 0.028 ng/mL (< 0.028)
[2023-05-23 18:01] LABS: Bacteria/HPF 4+ HPF (None Seen); CAUTI Indications for Culture Pelvic or flank pain; Mucous/LPF 1+ LPF (<2+); Squamous Epithelial 0-3 HPF (0-3); WBC/HPF Greater than 50 HPF (0-3)
[2023-05-23 18:02] LABS: Urine Culture Reflex Yes Yes
[2023-05-23 18:59] LABS: SARS-CoV-2 NAA Rapid Test Not Detected (NotDetected)
[2023-05-23] MEDS ORDERED: Furosemide 100 MG (10 mL) VIAL ONE (19:04)
[2023-05-23] MEDS ORDERED: cefTRIAXone (ROCEPHIN) 1 GM VIAL ONE (19:05)
[2023-05-23] MEDS ORDERED: Ondansetron PF 4 MG/2 ML Vial IVP PRN (20:21)
[2023-05-23] MEDS ORDERED: Guaifenesin DM 100-10/5 ML UDCUP PO PRN (20:21)
[2023-05-23] MEDS ORDERED: Senokot S 8.6-50 MG TAB PO PRN (20:21)
[2023-05-23] MEDS ORDERED: Calcium Carbonate 500 MG ChewTAB PO PRN (20:21)
[2023-05-23] MEDS ORDERED: Acetaminophen 325 MG TAB PO PRN (20:21)
[2023-05-23 20:44] LABS: Troponin I 0.038 ng/mL (< 0.028)
[2023-05-23] MEDS: Carvedilol 3.125 MG TAB PO SCH (20:55)
[2023-05-23] MEDS: Famotidine 20 MG TAB PO SCH (20:55)
[2023-05-23] MEDS: Donepezil HCl 5 MG TAB PO SCH (20:55)
[2023-05-23] MEDS: Apixaban 2.5 MG TAB PO SCH (20:55)
[2023-05-23] MEDS: Carbidopa/Levodopa 25-100 mg Tablet PO SCH (20:55)
[2023-05-23] MEDS: Sacubitril 24MG/Valsartan 26 MG TAB PO SCH (20:55)
[2023-05-23] MEDS ORDERED: Apixaban 5 MG TAB ONE (21:56)
[2023-05-23] MEDS ORDERED: Carvedilol 3.125 MG TAB ONE (21:57)
[2023-05-23] MEDS ORDERED: Famotidine 20 MG TAB ONE (21:57)
[2023-05-23 23:42] LABS: Troponin I 0.025 ng/mL (< 0.028)
[2023-05-24 03:59] LABS: Anion Gap 14 mmol/L (10-20); BUN (Urea Nitrogen) 28 mg/dL (9.8-20.1); Calc. Creatinine Clearance 0 mL/min (70-130); Calcium 8.3 mg/dL (7.8-10.44); Carbon Dioxide 24 mmol/L (23-31); Chloride 106 mmol/L (98-107); Estimated GFR 74; Glucose 157 mg/dL (83-110); Magnesium 1.6 mg/dL (1.6-2.6); Potassium 3.8 mmol/L (3.5-5.1); Sodium 140 mmol/L (136-145)
[2023-05-24] MEDS: Furosemide 20 MG (2 mL) VIAL SLOW IVP SCH (05:25)
[2023-05-24] MEDS ORDERED: Carvedilol 3.125 MG TAB ONE (07:49)
[2023-05-24] MEDS: Carvedilol 3.125 MG TAB PO SCH (08:45)
[2023-05-24] MEDS ORDERED: Cephalexin 250 MG CAP ONE (09:10)
[2023-05-24] MEDS ORDERED: Digoxin 0.125 MG TAB ONE (09:10)
[2023-05-24] MEDS ORDERED: Famotidine 20 MG TAB ONE (09:12)
[2023-05-24] MEDS ORDERED: Apixaban 2.5 MG TAB ONE (09:12)
[2023-05-24] MEDS: Digoxin 0.125 MG TAB PO SCH (09:55)
[2023-05-24] MEDS: Magnesium Oxide 400 MG TAB PO SCH (09:55)
[2023-05-24] MEDS: Cephalexin 250 MG CAP PO SCH (09:55)
[2023-05-24] MEDS: Empagliflozin 10 MG TAB PO SCH (09:55)
[2023-05-24] MEDS: Spironolactone 25 MG TAB PO SCH (09:55)
[2023-05-24] MEDS ORDERED: Furosemide 40 MG (4 mL) VIAL ONE (14:09)
[2023-05-24] MEDS ORDERED: cefTRIAXone\\ROCEPHIN 1 GM in Sodium Chloride 0.9% 100 ML IVPB SCH (18:00)
[2023-05-24] MEDS: Albumin 25% 25 GM (100 mL) BOT IVPB SCH (18:03)
[2023-05-25] MEDS: Carbidopa/Levodopa 25-100 mg Tablet PO SCH (00:31)
[2023-05-25 00:54] LABS: Creatinine, Urine Less than 20.00 mg/dL (47-110); Protein, Urine Random Quant 32 mg/dL (1-14)
[2023-05-25] MEDS: Furosemide 40 MG (4 mL) VIAL SLOW IVP SCH (05:57)
[2023-05-25 07:05] LABS: ALT (SGPT) 7 U/L (8-55); AST (SGOT) 9 U/L (5-34); Albumin 3.3 g/dL (3.4-4.8); Alkaline Phosphatase 45 U/L (40-110); Anion Gap 16 mmol/L (10-20); BUN (Urea Nitrogen) 30 mg/dL (9.8-20.1); Bilirubin, Total 0.7 mg/dL (0.2-1.2); Calc. Creatinine Clearance 50 mL/min (70-130); Calcium 8.8 mg/dL (7.8-10.44); Carbon Dioxide 28 mmol/L (23-31); Chloride 105 mmol/L (98-107); Estimated GFR 79; Globulin 2.5 g/dL (2.4-3.5); Glucose 118 mg/dL (83-110); Potassium 3.8 mmol/L (3.5-5.1); Protein, Total 5.8 g/dL (5.8-8.1); Sodium 145 mmol/L (136-145)
[2023-05-25] MEDS ORDERED: Fosfomycin 3 GM/Packet PO SCH (11:30)
[2023-05-25 12:27] VITALS: BMI 21.2
[2023-05-25] MEDS: Nitrofurantoin Monohyd/M-Cryst 100 MG CAP PO SCH ×2 (13:31→21:47)
[2023-05-25 14:33] LABS: Magnesium 1.8 mg/dL (1.6-2.6)
[2023-05-26 05:42] LABS: Anion Gap 14 mmol/L (10-20); BUN (Urea Nitrogen) 35 mg/dL (9.8-20.1); Calc. Creatinine Clearance 50 mL/min (70-130); Calcium 8.7 mg/dL (7.8-10.44); Carbon Dioxide 34 mmol/L (23-31); Chloride 102 mmol/L (98-107); Estimated GFR 78; Glucose 119 mg/dL (83-110); Potassium 3.1 mmol/L (3.5-5.1); Sodium 147 mmol/L (136-145)
[2023-05-26] MEDS: Potassium Bicarbonate/Cit Ac 25 MEQ TAB PO SCH (14:05)
[2023-05-26 14:32] LABS: Magnesium 1.9 mg/dL (1.6-2.6)
[2023-05-26] MEDS: Magnesium 2 GM/50 ML(in water) 2 GM in Premix 1 BAG IVPB SCH (15:12)
[2023-05-26] MEDS: Famotidine 20 MG TAB PO SCH (22:17)
[2023-05-27 04:19] LABS: Anion Gap 15 mmol/L (10-20); BUN (Urea Nitrogen) 42 mg/dL (9.8-20.1); Calc. Creatinine Clearance 46 mL/min (70-130); Calcium 9.1 mg/dL (7.8-10.44); Carbon Dioxide 37 mmol/L (23-31); Chloride 99 mmol/L (98-107); Estimated GFR 72; Glucose 126 mg/dL (83-110); Potassium 3.7 mmol/L (3.5-5.1); Sodium 147 mmol/L (136-145)
[2023-05-27] MEDS: Furosemide 40 MG TAB PO SCH (07:51)
[2023-05-27] MEDS ORDERED: Furosemide 40 MG (4 mL) VIAL SLOW IVP SCH (09:00)
[2023-05-27 20:24] VITALS: BP 129/71; TEMP 97.7
== END 2023-05-27 20:15 | disposition home or self-care (01) | DRG 291 ==
LOC: CSHERS 16:17 → CSHERHOLD 19:48 → CSHTELE 05-24 16:11
PROVIDERS: ADMIT Student in an Organized Health Care Education/Training Program; ATTEND Internal Medicine
PROC: 4A033R1 Measurement of Arterial Saturation, Peripheral, Percutaneous Approach (ICD-10-PCS; principal; 2023-05-23)
PROC: 30233J1 Transfusion of Nonautologous Serum Albumin into Peripheral Vein, Percutaneous Approach (ICD-10-PCS; 2023-05-24)
DX: I11.0 Hypertensive heart disease with heart failure (principal); I50.23 Acute on chronic systolic (congestive) heart failure; J96.01 Acute respiratory failure with hypoxia; N39.0 Urinary tract infection, site not specified; E87.1 Hypo-osmolality and hyponatremia; Z79.899 Other long term (current) drug therapy; Z79.01 Long term (current) use of anticoagulants; Z86.711 Personal history of pulmonary embolism; E88.09 Other disorders of plasma-protein metabolism, not elsewhere classified; I48.0 Paroxysmal atrial fibrillation; Z98.890 Other specified postprocedural states; Z11.52 Encounter for screening for COVID-19; I44.7 Left bundle-branch block, unspecified; R73.03 Prediabetes; G20.A1 Parkinson's disease without dyskinesia, without mention of fluctuations; F02.80 Dementia in other diseases classified elsewhere, unspecified severity, without behavioral disturbance, psychotic disturbance, mood disturbance, and anxiety; E87.6 Hypokalemia
CPT/HCPCS: 36415; 36416; 36600; 71045; 80048; 80053; 81001; 82570; 82805; 83735; 83880; 84156; 84443; 84484; 85025; 87077; 87086; 87186; 93005; 94760; 94762; 96374; 96375; 97139; J0696; J1940; J3475; P9047

== ENCOUNTER 2023-06-02 16:09 | Outpatient (CLI) | payer MEDICARE | END 2023-06-02 16:10 | disposition home or self-care (01) | LOC: CSHWCC 16:09 | PROVIDERS: ATTEND Nurse Practitioner Family | DX: L89.152 Pressure ulcer of sacral region, stage 2 (principal); L89.220 Pressure ulcer of left hip, unstageable; L89.210 Pressure ulcer of right hip, unstageable; I69.30 Unspecified sequelae of cerebral infarction; G82.22 Paraplegia, incomplete | CPT/HCPCS: 11042; 11043; 97605; G0463; 99213 ==

== ENCOUNTER 2023-06-16 15:55 | Outpatient (CLI) | payer MEDICARE | END 2023-06-16 15:56 | disposition home or self-care (01) | LOC: CSHWCC 15:55 | PROVIDERS: ATTEND Nurse Practitioner Family | DX: L89.152 Pressure ulcer of sacral region, stage 2 (principal); L89.220 Pressure ulcer of left hip, unstageable; L89.210 Pressure ulcer of right hip, unstageable; I69.30 Unspecified sequelae of cerebral infarction; G82.22 Paraplegia, incomplete | CPT/HCPCS: 11042; 97597; 97605 ==

== ENCOUNTER 2023-07-14 15:12 | Outpatient (CLI) | payer MEDICARE | END 2023-07-14 15:13 | disposition home or self-care (01) | LOC: CSHWCC 15:12 | PROVIDERS: ATTEND Nurse Practitioner Family | DX: L89.224 Pressure ulcer of left hip, stage 4 (principal); L89.214 Pressure ulcer of right hip, stage 4; L89.152 Pressure ulcer of sacral region, stage 2; I69.30 Unspecified sequelae of cerebral infarction; G82.22 Paraplegia, incomplete | CPT/HCPCS: 11042 ==

== ENCOUNTER 2023-08-18 13:08 | Outpatient (CLI) | payer MEDICARE | END 2023-08-18 13:09 | disposition home or self-care (01) | LOC: CSHWCC 13:08 | PROVIDERS: ATTEND Nurse Practitioner Family | DX: L89.220 Pressure ulcer of left hip, unstageable (principal); L89.210 Pressure ulcer of right hip, unstageable; I69.30 Unspecified sequelae of cerebral infarction; G82.22 Paraplegia, incomplete | CPT/HCPCS: 11042; 97597 ==

== ENCOUNTER 2023-09-09 14:50 | Outpatient (CLI) | payer MEDICARE | END 2023-09-09 14:51 | disposition home or self-care (01) | LOC: CSHULT 14:50 | PROVIDERS: ATTEND Internal Medicine | DX: E05.00 Thyrotoxicosis with diffuse goiter without thyrotoxic crisis or storm (principal) | CPT/HCPCS: 76536 ==

== ENCOUNTER 2023-09-29 15:41 | Outpatient (CLI) | payer MEDICARE | END 2023-09-29 15:42 | disposition home or self-care (01) | LOC: CSHWCC 15:41 | PROVIDERS: ATTEND Preventive Medicine Undersea and Hyperbaric Medicine | DX: L89.220 Pressure ulcer of left hip, unstageable (principal); I69.30 Unspecified sequelae of cerebral infarction; G82.22 Paraplegia, incomplete | CPT/HCPCS: 99213; G0463 ==

== ENCOUNTER 2023-11-03 15:05 | Outpatient (CLI) | payer MEDICARE | END 2023-11-03 15:06 | disposition home or self-care (01) | LOC: CSHWCC 15:05 | PROVIDERS: ATTEND Nurse Practitioner Family | DX: L89.220 Pressure ulcer of left hip, unstageable (principal); I69.30 Unspecified sequelae of cerebral infarction; G82.22 Paraplegia, incomplete | CPT/HCPCS: 99212; G0463 ==

== ENCOUNTER 2023-12-01 14:26 | Outpatient (CLI) | payer MEDICARE | END 2023-12-01 14:27 | disposition home or self-care (01) | LOC: CSHWCC 14:26 | PROVIDERS: ATTEND Nurse Practitioner Family | DX: G82.22 Paraplegia, incomplete (principal); Z87.2 Personal history of diseases of the skin and subcutaneous tissue | CPT/HCPCS: 99212; G0463 ==